=== PATIENT | male | born 1950 | race Caucasian/White ===

== ENCOUNTER → 2018-03-24 12:13 | Outpatient (CLI) | payer MEDICARE, SELFPAY ==
--- NOTE | 2018-03-24 12:15 | DI.RAD.S_ITS ---
PROCEDURE: XR HIP W PEL IF DONE LT MIN 4V INDICATIONS: pain with ambulation TECHNIQUE: AP pelvis with lateral view(s) of the bilateral hip(s). COMPARISON: None. FINDINGS: Bones: No fractures or dislocations. Pelvic ring appears intact. No suspicious bony lesions. There is mild bilateral hip joint space narrowing. Soft tissues: The visualized bowel gas pattern is normal. No suspicious soft tissue calcifications. IMPRESSION: Mild bilateral hip osteoarthritis. If there is continued pain, followup exam or additional imaging such as MRI or CT could be performed for further assessment. Dictated by: Kate Hope M.D. on 03/24/2018 at 13:11 Approved by: Kate Hope M.D. on 03/24/2018 at 13:12
== END ==
PROVIDERS: Visit Provider Physician Assistant
DX: M25.552 Pain in left hip (principal); M16.0 Bilateral primary osteoarthritis of hip
CPT/HCPCS: 73522

== ENCOUNTER → 2019-02-10 11:51 | Outpatient (CLI) | payer MEDICARE, SELFPAY ==
[2019-02-10 12:34] LABS: Hematocrit 43.5 % (41-53); Hemoglobin 14.9 g/dL (13.5-17.5); Mean Corpuscular HGB Conc 34.2 % (30-36); Mean Corpuscular Hemoglobin 30.2 PG (26-34); Mean Corpuscular Volume 88.3 fL (80-100); Platelet Count 169 X10^3/uL (150-400); Red Blood Cell Count 4.93 X10^6/uL (4.5-5.9); Red Cell Distribution Width 14.2 % (11.6-14.8); White Blood Cell Count 5.3 X10^3/uL (4.5-11.0)
[2019-02-10 12:54] LABS: Hemoglobin A1C% w Est Avg Glu 5.8 % (4.0-6.0)
[2019-02-10 13:03] LABS: Alanine Aminotransferase 42 IU/L (21-72); Albumin 4.5 g/dL (3.5-5.0); Alkaline Phosphatase 39 U/L (38-126); Aspartate Aminotransferase 30 IU/L (17-59); Bilirubin Total 0.6 mg/dL (0.2-1.3); Blood Urea Nitrogen 18 mg/dL (9-20); Carbon Dioxide 26 mmol/L (22-32); Chloride 102 mmol/L (98-107); Cholesterol 202 mg/dL (140-199); Estimated Glomerular Filt Rate > 60.0 mL/min (>60); Globulin 2.3 g/dL (1.7-4.1); Glucose 118 mg/dL (80-110); HDL Cholesterol 41 mg/dL (40-60); HEMOLYSIS < 15 (0-50); LDL Cholesterol Calculated 137 mg/dL (<100); Potassium 4.6 mmol/L (3.4-5.1); Sodium 138 mmol/L (137-145); Total Protein 6.8 g/dL (6.3-8.2); Triglycerides 121 mg/dL (35-150)
[2019-02-10 13:31] LABS: TSH w/ Reflex to FT4 1.67 uIU/mL (0.47-4.68)
[2019-02-10 13:50] LABS: Vitamin B12 514 pg/mL (239-931)
[2019-02-15 11:53] LABS: Testosterone Free 57.6 pg/mL (35.0-155.0); Testosterone Total 340 ng/dL (250-1100)
== END ==
PROVIDERS: PCP Nurse Practitioner Family; Visit Provider Nurse Practitioner Family
DX: E11.69 Type 2 diabetes mellitus with other specified complication (principal); E66.9 Obesity, unspecified; R53.83 Other fatigue; E78.2 Mixed hyperlipidemia
CPT/HCPCS: 36415; 80053; 80061; 82607; 83036; 84402; 84403; 84443; 85027

== ENCOUNTER → 2020-01-24 12:36 | Outpatient (CLI) | payer MEDICARE, SELFPAY ==
[2020-01-24 14:38] LABS: Hemoglobin 14.5 g/dL (13.5-17.5); Mean Corpuscular HGB Conc 33.8 % (30-36); Mean Corpuscular Hemoglobin 30.2 PG (26-34); Mean Corpuscular Volume 89.5 fL (80-100); Platelet Count 163 X10^3/uL (150-400); Red Blood Cell Count 4.81 X10^6/uL (4.5-5.9); Red Cell Distribution Width 14.2 % (11.6-14.8); White Blood Cell Count 6.2 X10^3/uL (4.5-11.0)
[2020-01-24 14:56] LABS: Alanine Aminotransferase 29 IU/L (<50); Albumin 4.3 g/dL (3.5-5.0); Albumin Globulin Ratio 1.5 (1.0-2.8); Alkaline Phosphatase 37 U/L (38-126); Aspartate Aminotransferase 24 IU/L (17-59); Bilirubin Total 0.5 mg/dL (0.2-1.3); Blood Urea Nitrogen 18 mg/dL (9-20); Calcium 9.4 mg/dL (8.4-10.2); Carbon Dioxide 31 mmol/L (22-32); Chloride 105 mmol/L (98-107); Cholesterol 188 mg/dL (140-199); Estimated Glomerular Filt Rate > 60.0 mL/min (>60); Globulin 2.8 g/dL (1.7-4.1); Glucose 109 mg/dL (80-110); HDL Cholesterol 35 mg/dL (40-60); HEMOLYSIS < 15 (0-50); LDL Cholesterol Calculated 135 mg/dL (<100); Potassium 4.5 mmol/L (3.4-5.1); Sodium 139 mmol/L (137-145); Total Protein 7.1 g/dL (6.3-8.2); Triglycerides 91 mg/dL (35-150)
[2020-01-24 14:58] LABS: Hemoglobin A1C% w Est Avg Glu 5.6 % (4.0-6.0)
== END ==
PROVIDERS: PCP Nurse Practitioner Family; Referring Provider Nurse Practitioner Family; Visit Provider Nurse Practitioner Family
DX: Z00.00 Encounter for general adult medical examination without abnormal findings (principal); E11.69 Type 2 diabetes mellitus with other specified complication; E66.9 Obesity, unspecified; E78.2 Mixed hyperlipidemia
CPT/HCPCS: 36415; 80053; 80061; 83036; 85027

== ENCOUNTER → 2020-07-19 11:54 | Outpatient (CLI) | payer MEDICARE, SELFPAY ==
[2020-07-19] MEDS: COVID-19 VACC, Ad26(JANSSEN)/PF 0.5 ML IM (12:01)
== END ==
PROVIDERS: PCP Nurse Practitioner Family; Visit Provider Internal Medicine
DX: Z23 Encounter for immunization (principal)
CPT/HCPCS: 0031A; 91303

== ENCOUNTER → 2021-06-13 09:04 | Outpatient (CLI) | payer MEDICARE, SELFPAY ==
[2021-06-13 09:59] LABS: Hematocrit 43.3 % (41-53); Hemoglobin 14.8 g/dL (13.5-17.5); Mean Corpuscular HGB Conc 34.2 % (30-36); Mean Corpuscular Hemoglobin 29.9 PG (26-34); Mean Corpuscular Volume 87.4 fL (80-100); Platelet Count 172 X10^3/uL (150-400); Red Blood Cell Count 4.95 X10^6/uL (4.5-5.9); Red Cell Distribution Width 14.6 % (11.6-14.8); White Blood Cell Count 6.1 X10^3/uL (4.5-11.0)
[2021-06-13 10:12] LABS: Hemoglobin A1C% w Est Avg Glu 5.7 % (4.0-6.0)
[2021-06-13 10:30] LABS: Alanine Aminotransferase 28 IU/L (<50); Albumin 4.7 g/dL (3.5-5.0); Albumin Globulin Ratio 1.7 (1.0-2.8); Alkaline Phosphatase 38 U/L (38-126); Aspartate Aminotransferase 21 IU/L (17-59); BUN Creatinine Ratio 22.1 (6-22); Bilirubin Total 0.6 mg/dL (0.2-1.3); Blood Urea Nitrogen 19 mg/dL (9-20); Calcium 9.5 mg/dL (8.4-10.2); Carbon Dioxide 26 mmol/L (22-32); Chloride 105 mmol/L (98-107); Cholesterol 224 mg/dL (140-199); Estimated Glomerular Filt Rate > 60.0 mL/min (>60); Globulin 2.7 g/dL (1.7-4.1); Glucose 128 mg/dL (80-110); HDL Cholesterol 43 mg/dL (40-60); HEMOLYSIS < 15 (0-50); LDL Cholesterol Calculated 161 mg/dL (<100); Potassium 4.5 mmol/L (3.4-5.1); Sodium 138 mmol/L (137-145); Total Protein 7.4 g/dL (6.3-8.2); Triglycerides 101 mg/dL (35-150)
== END ==
PROVIDERS: PCP Nurse Practitioner Family; Referring Provider Nurse Practitioner Family; Visit Provider Nurse Practitioner Family
DX: E11.69 Type 2 diabetes mellitus with other specified complication (principal); E66.9 Obesity, unspecified; E78.2 Mixed hyperlipidemia; Z00.00 Encounter for general adult medical examination without abnormal findings
CPT/HCPCS: 36415; 80053; 80061; 83036; 85027

== ENCOUNTER 2021-08-20 11:15 | Outpatient (RCR) | payer MEDICARE, SELFPAY ==
--- NOTE | 2021-07-18 16:00 | PT.OIE ---
Current Diagnoses Pain in left shoulder (07/18/21) Past Medical History (Last Updated 06/13/21 @ 09:02 by GUY Dinero) Cyst (04/2019) Diabetes mellitus type 2 in obese (2014) Elevated blood pressure reading without diagnosis of hypertension (06/2021) History of tonsillectomy and adenoidectomy (~1954) Mixed hyperlipidemia (2014) Past Surgical History (Last Updated 03/27/19 @ 20:05 by Sally Baires) Anesthesia History of tonsillectomy and adenoidectomy (~1954) Visit Care Team Role Provider Type GUY Dinero Attending Provider Advanced Nurse Orthopedic Family Provider Primary Care Provider Referring Provider Specialty: Family Practice Address: [address] [place] [address], [facility] Email: [email or web address] Physical Therapy Initial Evaluation PT-OP-A Visit Information Start: 07/09/21 12:35 Freq: Status: Active Protocol: Document 07/18/21 13:45 AMB (Rec: 07/18/21 15:53 AMB [id number]) Out-Patient Physical Therapy Visit Information Visit Information Visit Type Initial Evaluation Visit Start Time 13:45 Visit Stop Time 14:30 Total Visit Minutes 45 Visit Number 1 PT-OP-B Current Condition Start: 07/09/21 12:35 Freq: Status: Active Protocol: Document 07/18/21 13:50 AMB (Rec: 07/18/21 13:57 AMB [id number]) Current Condition History of Current Condition Onset Date June 2020 Current Complaints L shoulder pain History of Current Condition Fell skiing, and hurt right knee and left shoulder. Left shoulder pain, reaching behind back is the worst, sleepin on the left shoulder is challenging. Has noticed decreased ROM, clicking with overhead movement. Denies numbness/tingling, does notice some tension in the neck. Prior Functional Status Baseline Function- ADL's Independent Baseline Function- Mobility Independent Current Functional Impairments (Reported) Functional Limitations- ADL's Has reduced weightlifting due to the pain. Pain with reaching behind back to move belt through belt loops, difficulty sleeping on the left shoulder. Personal Factors Other Personal Factors That May Effect DMII- intermittent fasting Therapy/Recovery PT-OP-C Subjective Start: 07/09/21 12:35 Freq: Status: Active Protocol: Document 07/18/21 13:45 AMB (Rec: 07/21/21 10:42 AMB [id number]) Patient Questionnaires Quick Dash- Upper Extremity Quick Dash UE Score 29 Quick Dash UE Impairment 20 to 39% Impaired (Score 20- 39) OP-PT Pain Assessment Comments Pain Comments -10/20 with movement- left poserior shoulder PT-OP-J Posture/Palpation/Skin Start: 07/09/21 12:35 Freq: Status: Active Protocol: Document 07/19/21 13:45 AMB (Rec: 07/21/21 10:45 AMB [id number]) Posture Evaluation Comments Posture Comments Moderate forward shoulder posture Palpation Assessment Location One Palpation Location Left shoulder Palpation Findings Muscle Guarding,Tenderness Palpation Details Tenderness at posterior GH joint, no tenderness noted through scapula, tension at levator scap/ UT PT-OP-K Range of Motion Start: 07/09/21 12:35 Freq: Status: Active Protocol: Document 07/18/21 13:57 AMB (Rec: 07/18/21 14:24 AMB [id number]) Shoulder Goniometric Range of Motion Shoulder Left Passive Testing Position Supine Flexion 150 Abduction 133 External Rotation at 45 degrees 40 Abduction PT-OP-L Special Tests Start: 07/09/21 12:35 Freq: Status: Active Protocol: Document 07/18/21 13:45 AMB (Rec: 07/21/21 10:42 AMB [id number]) Special Tests Shoulder Special Tests Neer Impingement Test Results + PT-OP-M Strength Start: 07/09/21 12:35 Freq: Status: Active Protocol: Document 07/18/21 13:45 AMB (Rec: 07/21/21 10:42 AMB [id number]) Shoulder Strength Shoulder Manual Muscle Testing Left Flexion 4 Good Extension 4+ Good+ Abduction (C5) 4 Good External Rotation 4 Good Internal Rotation 4+ Good+ PT-OP-Q Treatments Start: 07/09/21 12:35 Freq: Status: Active Protocol: Document 07/18/21 13:45 AMB (Rec: 07/21/21 10:42 AMB [id number]) Therapeutic Exercises Sitting Exercises tband ER Side bilateral Resistance #3 Reps/Minutes 2x10 Comments cues for form PT-OP-T Assessment and Plan Start: 07/09/21 12:35 Freq: Status: Active Protocol: Document 07/18/21 13:45 AMB (Rec: 07/21/21 10:42 AMB [id number]) Physical Therapy Assessment Rehab Potential Rehabilitation Potential Good Evaluation Complexity Number of Personal Factors/Comorbidities 1-2 Number of Body Systems Impaired 4 or More Clinical Presentation at Evaluation Stable Impairments Impairments Activity Tolerance,Functional Activities,Pain,Posture,ROM, Strength Goals Two Impairment Pain Short Term Goal (STG) Ed will reach behind his back to don/doff his belt with 2/10 pain or less. STG Duration 4 weeks Care Home Goal (LTG) Ed will sleep on his left shoulder without waking due to pain. LTG Duration 8 weeks One Impairment Range of motion Short Term Goal (STG) Ed will improve his passive shoulder flexion to 160 degrees. STG Duration 4 weeks Tank Builder And Erector Goal (LTG) Ed will improve his active shoulder abduction to at least 150 degrees. LTG Duration 8 weeks Assessment Summary Assessment Ed attends physical therapy over 1 year after left shoulder injury that continues to limit his ability to rotate his shoulder and reach behind his back and over his shoulder. He did show signs of impingement and weakness into external rotation. He will benefit from physical therapy to improve his strength, ROM, and decrease pain/swelling so that he can have full range of motion and strength again. Physical Therapy Plan Frequency and Duration Frequency of Treatment 2x/Week Duration of Treatment 8 weeks Plan of Care Start Date 07/18/21 Plan of Care End Date 09/12/21 Therapeutic Interventions Therapeutic Interventions Home Exercise Program,Joint Mobilizations,Manual Therapy, Neuromuscular Re-education, Self-Care/Home Management,Soft Tissue Mobilization, Therapeutic Activities, Therapeutic Exercises Modalities Cold Pack/Ice Massage,Electric Stimulation,Hot Packs Next Visit Focus/Plan Next Note Type Treatment Note Next Visit Plan Review GH ER strengthening for HEP, progress ROM as tolerated
--- NOTE | 2021-07-18 16:00 | PT.OPPOC ---
Physical, Occupational & Speech Therapy At [facility] Current Diagnoses Pain in left shoulder (07/18/21) Visit Care Team Role Provider Type GUY Dinero Attending Provider Advanced Lubrication Servicer Family Provider Primary Care Provider Referring Provider Specialty: Family Practice Address: [address] [place] [address], [id number] Email: [email or web address] Plan Of Care PT-OP-T Assessment and Plan Start: 07/09/21 12:35 Freq: Status: Active Protocol: Document 07/18/21 13:45 AMB (Rec: 07/21/21 10:42 AMB [id number]) Physical Therapy Assessment Rehab Potential Rehabilitation Potential Good Evaluation Complexity Number of Personal Factors/Comorbidities 1-2 Number of Body Systems Impaired 4 or More Clinical Presentation at Evaluation Stable Impairments Impairments Activity Tolerance,Functional Activities,Pain,Posture,ROM, Strength Goals Two Impairment Pain Short Term Goal (STG) Ed will reach behind his back to don/doff his belt with 2/10 pain or less. STG Duration 4 weeks Half-Way Goal (LTG) Ed will sleep on his left shoulder without waking due to pain. LTG Duration 8 weeks One Impairment Range of motion Short Term Goal (STG) Ed will improve his passive shoulder flexion to 160 degrees. STG Duration 4 weeks Supervisor Dog License Officer Goal (LTG) Ed will improve his active shoulder abduction to at least 150 degrees. LTG Duration 8 weeks Assessment Summary Assessment Ed attends physical therapy over 1 year after left shoulder injury that continues to limit his ability to rotate his shoulder and reach behind his back and over his shoulder. He did show signs of impingement and weakness into external rotation. He will benefit from physical therapy to improve his strength, ROM, and decrease pain/swelling so that he can have full range of motion and strength again. Physical Therapy Plan Frequency and Duration Frequency of Treatment 2x/Week Duration of Treatment 8 weeks Plan of Care Start Date 07/18/21 Plan of Care End Date 09/12/21 Therapeutic Interventions Therapeutic Interventions Home Exercise Program,Joint Mobilizations,Manual Therapy, Neuromuscular Re-education, Self-Care/Home Management,Soft Tissue Mobilization, Therapeutic Activities, Therapeutic Exercises Modalities Cold Pack/Ice Massage,Electric Stimulation,Hot Packs Next Visit Focus/Plan Next Note Type Treatment Note Next Visit Plan Review GH ER strengthening for HEP, progress ROM as tolerated Plan of Care Dates Plan of Care Start Date 07/18/21 Plan of Care End Date 09/12/21 Electronically Signed by: Licha Smith, PT 07/21/21 1046 Please Sign and Return: I have reviewed this Plan of Care and certify that the skilled therapy services above are required to meet the patient?s needs. Physician Signature Date Printed Name and Credentials Clinical Instructor Signature Printed Name and Credentials
--- NOTE | 2021-07-19 16:00 | PT.OIE ---
Current Diagnoses Pain in left shoulder (07/18/21) Past Medical History (Last Updated 06/13/21 @ 09:02 by GUY Dinero) Cyst (04/2019) Diabetes mellitus type 2 in obese (2014) Elevated blood pressure reading without diagnosis of hypertension (06/2021) History of tonsillectomy and adenoidectomy (~1954) Mixed hyperlipidemia (2014) Past Surgical History (Last Updated 03/27/19 @ 20:05 by Sally Baires) Anesthesia History of tonsillectomy and adenoidectomy (~1954) Visit Care Team Role Provider Type GUY Dinero Attending Provider Advanced Industrial Locomotive Operator Family Provider Primary Care Provider Referring Provider Specialty: Family Practice Address: [address] [place] [address], [facility] Email: [email or web address] Physical Therapy Initial Evaluation PT-OP-A Visit Information Start: 07/09/21 12:35 Freq: Status: Active Protocol: Document 07/18/21 13:45 AMB (Rec: 07/18/21 15:53 AMB [id number]) Out-Patient Physical Therapy Visit Information Visit Information Visit Type Initial Evaluation Visit Start Time 13:45 Visit Stop Time 14:30 Total Visit Minutes 45 Visit Number 1 PT-OP-B Current Condition Start: 07/09/21 12:35 Freq: Status: Active Protocol: Document 07/18/21 13:50 AMB (Rec: 07/18/21 13:57 AMB [id number]) Current Condition History of Current Condition Onset Date June 2020 Current Complaints L shoulder pain History of Current Condition Fell skiing, and hurt right knee and left shoulder. Left shoulder pain, reaching behind back is the worst, sleepin on the left shoulder is challenging. Has noticed decreased ROM, clicking with overhead movement. Denies numbness/tingling, does notice some tension in the neck. Prior Functional Status Baseline Function- ADL's Independent Baseline Function- Mobility Independent Current Functional Impairments (Reported) Functional Limitations- ADL's Has reduced weightlifting due to the pain. Pain with reaching behind back to move belt through belt loops, difficulty sleeping on the left shoulder. Personal Factors Other Personal Factors That May Effect DMII- intermittent fasting Therapy/Recovery PT-OP-C Subjective Start: 07/09/21 12:35 Freq: Status: Active Protocol: Document 07/18/21 13:45 AMB (Rec: 07/21/21 10:42 AMB [id number]) Patient Questionnaires Quick Dash- Upper Extremity Quick Dash UE Score 29 Quick Dash UE Impairment 20 to 39% Impaired (Score 20- 39) OP-PT Pain Assessment Comments Pain Comments -10/20 with movement- left poserior shoulder PT-OP-J Posture/Palpation/Skin Start: 07/09/21 12:35 Freq: Status: Active Protocol: Document 07/19/21 13:45 AMB (Rec: 07/21/21 10:45 AMB [id number]) Posture Evaluation Comments Posture Comments Moderate forward shoulder posture Palpation Assessment Location One Palpation Location Left shoulder Palpation Findings Muscle Guarding,Tenderness Palpation Details Tenderness at posterior GH joint, no tenderness noted through scapula, tension at levator scap/ UT PT-OP-K Range of Motion Start: 07/09/21 12:35 Freq: Status: Active Protocol: Document 07/18/21 13:57 AMB (Rec: 07/18/21 14:24 AMB [id number]) Shoulder Goniometric Range of Motion Shoulder Left Passive Testing Position Supine Flexion 150 Abduction 133 External Rotation at 45 degrees 40 Abduction PT-OP-L Special Tests Start: 07/09/21 12:35 Freq: Status: Active Protocol: Document 07/18/21 13:45 AMB (Rec: 07/21/21 10:42 AMB [id number]) Special Tests Shoulder Special Tests Neer Impingement Test Results + PT-OP-M Strength Start: 07/09/21 12:35 Freq: Status: Active Protocol: Document 07/18/21 13:45 AMB (Rec: 07/21/21 10:42 AMB [id number]) Shoulder Strength Shoulder Manual Muscle Testing Left Flexion 4 Good Extension 4+ Good+ Abduction (C5) 4 Good External Rotation 4 Good Internal Rotation 4+ Good+ PT-OP-Q Treatments Start: 07/09/21 12:35 Freq: Status: Active Protocol: Document 07/18/21 13:45 AMB (Rec: 07/21/21 10:42 AMB [id number]) Therapeutic Exercises Sitting Exercises tband ER Side bilateral Resistance #3 Reps/Minutes 2x10 Comments cues for form PT-OP-T Assessment and Plan Start: 07/09/21 12:35 Freq: Status: Active Protocol: Document 07/18/21 13:45 AMB (Rec: 07/21/21 10:42 AMB [id number]) Physical Therapy Assessment Rehab Potential Rehabilitation Potential Good Evaluation Complexity Number of Personal Factors/Comorbidities 1-2 Number of Body Systems Impaired 4 or More Clinical Presentation at Evaluation Stable Impairments Impairments Activity Tolerance,Functional Activities,Pain,Posture,ROM, Strength Goals Two Impairment Pain Short Term Goal (STG) Ed will reach behind his back to don/doff his belt with 2/10 pain or less. STG Duration 4 weeks Correction Goal (LTG) Ed will sleep on his left shoulder without waking due to pain. LTG Duration 8 weeks One Impairment Range of motion Short Term Goal (STG) Ed will improve his passive shoulder flexion to 160 degrees. STG Duration 4 weeks Saw Superintendent Goal (LTG) Ed will improve his active shoulder abduction to at least 150 degrees. LTG Duration 8 weeks Assessment Summary Assessment Ed attends physical therapy over 1 year after left shoulder injury that continues to limit his ability to rotate his shoulder and reach behind his back and over his shoulder. He did show signs of impingement and weakness into external rotation. He will benefit from physical therapy to improve his strength, ROM, and decrease pain/swelling so that he can have full range of motion and strength again. Physical Therapy Plan Frequency and Duration Frequency of Treatment 2x/Week Duration of Treatment 8 weeks Plan of Care Start Date 07/18/21 Plan of Care End Date 09/12/21 Therapeutic Interventions Therapeutic Interventions Home Exercise Program,Joint Mobilizations,Manual Therapy, Neuromuscular Re-education, Self-Care/Home Management,Soft Tissue Mobilization, Therapeutic Activities, Therapeutic Exercises Modalities Cold Pack/Ice Massage,Electric Stimulation,Hot Packs Next Visit Focus/Plan Next Note Type Treatment Note Next Visit Plan Review GH ER strengthening for HEP, progress ROM as tolerated
--- NOTE | 2021-07-22 16:12 | PT.OTN ---
Current Diagnoses Pain in left shoulder (07/22/21) Physical Therapy Treatment Note PT-OP-A Visit Information Start: 07/09/21 12:35 Freq: Status: Active Protocol: Document 07/22/21 13:54 AMB (Rec: 07/22/21 14:22 AMB [id number]) Out-Patient Physical Therapy Visit Information Visit Information Visit Type Treatment Note Visit Start Time 13:45 Visit Stop Time 14:30 Total Visit Minutes 45 Visit Number 2 PT-OP-B Current Condition Start: 07/09/21 12:35 Freq: Status: Active Protocol: Document 07/18/21 13:50 AMB (Rec: 07/18/21 13:57 AMB [id number]) Current Condition History of Current Condition Onset Date June 2020 Current Complaints L shoulder pain History of Current Condition Fell skiing, and hurt right knee and left shoulder. Left shoulder pain, reaching behind back is the worst, sleepin on the left shoulder is challenging. Has noticed decreased ROM, clicking with overhead movement. Denies numbness/tingling, does notice some tension in the neck. Prior Functional Status Baseline Function- ADL's Independent Baseline Function- Mobility Independent Current Functional Impairments (Reported) Functional Limitations- ADL's Has reduced weightlifting due to the pain. Pain with reaching behind back to move belt through belt loops, difficulty sleeping on the left shoulder. Personal Factors Other Personal Factors That May Effect DMII- intermittent fasting Therapy/Recovery PT-OP-C Subjective Start: 07/09/21 12:35 Freq: Status: Active Protocol: Document 07/22/21 13:54 AMB (Rec: 07/22/21 14:22 AMB [id number]) OP-PT Subjective Patient Comments Patient Comments Pt reports pain at end range, soreness but range of motion is increasing. PT-OP-J Posture/Palpation/Skin Start: 07/09/21 12:35 Freq: Status: Active Protocol: Document 07/19/21 13:45 AMB (Rec: 07/21/21 10:45 AMB [id number]) Posture Evaluation Comments Posture Comments Moderate forward shoulder posture Palpation Assessment Location One Palpation Location Left shoulder Palpation Findings Muscle Guarding,Tenderness Palpation Details Tenderness at posterior GH joint, no tenderness noted through scapula, tension at levator scap/ UT PT-OP-K Range of Motion Start: 07/09/21 12:35 Freq: Status: Active Protocol: Document 07/18/21 13:57 AMB (Rec: 07/18/21 14:24 AMB [id number]) Shoulder Goniometric Range of Motion Shoulder Left Passive Testing Position Supine Flexion 150 Abduction 133 External Rotation at 45 degrees 40 Abduction PT-OP-L Special Tests Start: 07/09/21 12:35 Freq: Status: Active Protocol: Document 07/18/21 13:45 AMB (Rec: 07/21/21 10:42 AMB [id number]) Special Tests Shoulder Special Tests Neer Impingement Test Results + PT-OP-M Strength Start: 07/09/21 12:35 Freq: Status: Active Protocol: Document 07/18/21 13:45 AMB (Rec: 07/21/21 10:42 AMB [id number]) Shoulder Strength Shoulder Manual Muscle Testing Left Flexion 4 Good Extension 4+ Good+ Abduction (C5) 4 Good External Rotation 4 Good Internal Rotation 4+ Good+ PT-OP-Q Treatments Start: 07/09/21 12:35 Freq: Status: Active Protocol: Document 07/22/21 13:45 AMB (Rec: 07/22/21 14:22 AMB [id number]) Therapeutic Exercises Sitting Exercises tband ER Side bilateral Resistance #3 Reps/Minutes 2x10 Comments cues for form Standing Exercises extension Standing Exercise Name t band Side bilateral Reps/Minutes 2x10 rows Standing Exercise Name t band Side bilateral Resistance #2 Reps/Minutes 2x10 claude Reps/Minutes 2x10 Comments scaption and flexion Manual Therapy Treatment Joint Mobilizations 1 Joint GH Direction AP and inferior glide Grade III Body Position Hooklying PT-OP-T Assessment and Plan Start: 07/09/21 12:35 Freq: Status: Active Protocol: Document 07/22/21 13:45 AMB (Rec: 07/22/21 16:12 AMB [id number]) Physical Therapy Assessment Goals Two Impairment Pain Short Term Goal (STG) Ed will reach behind his back to don/doff his belt with 2/10 pain or less. STG Duration 4 weeks Custodial Goal (LTG) Ed will sleep on his left shoulder without waking due to pain. LTG Duration 8 weeks One Impairment Range of motion Short Term Goal (STG) Ed will improve his passive shoulder flexion to 160 degrees. STG Duration 4 weeks Custodial Goal (LTG) Ed will improve his active shoulder abduction to at least 150 degrees. LTG Duration 8 weeks Assessment Summary Assessment Pt tolerated strengthening well, but fatigues with ER quickly. abduction most limited today. Physical Therapy Plan Next Visit Focus/Plan Next Note Type Treatment Note Next Visit Plan Review GH ER strengthening for HEP, progress ROM as tolerated
--- NOTE | 2021-07-25 12:55 | PT.OTN ---
Current Diagnoses Pain in left shoulder (07/25/21) Physical Therapy Treatment Note PT-OP-A Visit Information Start: 07/09/21 12:35 Freq: Status: Active Protocol: Document 07/25/21 10:14 AMB (Rec: 07/25/21 11:24 AMB [id number]) Out-Patient Physical Therapy Visit Information Visit Information Visit Type Treatment Note Visit Start Time 10:15 Visit Stop Time 11:00 Total Visit Minutes 45 Visit Number 3 PT-OP-B Current Condition Start: 07/09/21 12:35 Freq: Status: Active Protocol: Document 07/18/21 13:50 AMB (Rec: 07/18/21 13:57 AMB [id number]) Current Condition History of Current Condition Onset Date June 2020 Current Complaints L shoulder pain History of Current Condition Fell skiing, and hurt right knee and left shoulder. Left shoulder pain, reaching behind back is the worst, sleepin on the left shoulder is challenging. Has noticed decreased ROM, clicking with overhead movement. Denies numbness/tingling, does notice some tension in the neck. Prior Functional Status Baseline Function- ADL's Independent Baseline Function- Mobility Independent Current Functional Impairments (Reported) Functional Limitations- ADL's Has reduced weightlifting due to the pain. Pain with reaching behind back to move belt through belt loops, difficulty sleeping on the left shoulder. Personal Factors Other Personal Factors That May Effect DMII- intermittent fasting Therapy/Recovery PT-OP-C Subjective Start: 07/09/21 12:35 Freq: Status: Active Protocol: Document 07/25/21 10:14 AMB (Rec: 07/25/21 11:24 AMB [id number]) OP-PT Subjective Patient Comments Patient Comments Pt reports his shoulder is a bit sore with the external rotation strengthening. PT-OP-J Posture/Palpation/Skin Start: 07/09/21 12:35 Freq: Status: Active Protocol: Document 07/19/21 13:45 AMB (Rec: 07/21/21 10:45 AMB [id number]) Posture Evaluation Comments Posture Comments Moderate forward shoulder posture Palpation Assessment Location One Palpation Location Left shoulder Palpation Findings Muscle Guarding,Tenderness Palpation Details Tenderness at posterior GH joint, no tenderness noted through scapula, tension at levator scap/ UT PT-OP-K Range of Motion Start: 07/09/21 12:35 Freq: Status: Active Protocol: Document 07/18/21 13:57 AMB (Rec: 07/18/21 14:24 AMB [id number]) Shoulder Goniometric Range of Motion Shoulder Left Passive Testing Position Supine Flexion 150 Abduction 133 External Rotation at 45 degrees 40 Abduction PT-OP-L Special Tests Start: 07/09/21 12:35 Freq: Status: Active Protocol: Document 07/18/21 13:45 AMB (Rec: 07/21/21 10:42 AMB [id number]) Special Tests Shoulder Special Tests Neer Impingement Test Results + PT-OP-M Strength Start: 07/09/21 12:35 Freq: Status: Active Protocol: Document 07/18/21 13:45 AMB (Rec: 07/21/21 10:42 AMB [id number]) Shoulder Strength Shoulder Manual Muscle Testing Left Flexion 4 Good Extension 4+ Good+ Abduction (C5) 4 Good External Rotation 4 Good Internal Rotation 4+ Good+ PT-OP-Q Treatments Start: 07/09/21 12:35 Freq: Status: Active Protocol: Document 07/25/21 10:14 AMB (Rec: 07/25/21 11:24 AMB [id number]) Therapeutic Exercises Sitting Exercises claude Reps/Minutes 5 min Comments flexion and scaption Standing Exercises pnf diagonal Resistance #1 Reps/Minutes 2x10 abduction Resistance #1 Reps/Minutes 2x10 Comments 0-60 flexion Resistance #1 Reps/Minutes 2x10 Comments 0-45 extension Standing Exercise Name t band Side bilateral Reps/Minutes 2x10 rows Standing Exercise Name t band Side bilateral Resistance #2 Reps/Minutes 2x10 Manual Therapy Treatment Soft Tissue Mobilization 1 Body Location L scapula Mobilization Type Myofascial Release Intensity/Depth Moderate Body Position Hooklying Joint Mobilizations 1 Joint GH Direction AP and inferior glide Grade III Body Position Hooklying PT-OP-T Assessment and Plan Start: 07/09/21 12:35 Freq: Status: Active Protocol: Document 07/25/21 10:14 AMB (Rec: 07/25/21 11:24 AMB [id number]) Physical Therapy Assessment Goals Two Impairment Pain Short Term Goal (STG) Ed will reach behind his back to don/doff his belt with 2/10 pain or less. STG Duration 4 weeks Custodial Goal (LTG) Ed will sleep on his left shoulder without waking due to pain. LTG Duration 8 weeks One Impairment Range of motion Short Term Goal (STG) Ed will improve his passive shoulder flexion to 160 degrees. STG Duration 4 weeks Custodial Goal (LTG) Ed will improve his active shoulder abduction to at least 150 degrees. LTG Duration 8 weeks Assessment Summary Assessment Pt is doing well. He is tolerated theraband exercises well. Gave PNF diagonals as HEP today. Encouraged to strengthen within comfortable range. Physical Therapy Plan Frequency and Duration Frequency of Treatment 2x/Week Duration of Treatment 8 weeks Plan of Care Start Date 07/18/21 Plan of Care End Date 09/12/21 Next Visit Focus/Plan Next Note Type Treatment Note Next Visit Plan Review GH ER strengthening for HEP, progress ROM as tolerated. continue to progress t band exercises- could consider increasing resistance of t band if doing well.
--- NOTE | 2021-07-29 12:49 | PT.OTN ---
Current Diagnoses Pain in left shoulder (07/29/21) Physical Therapy Treatment Note PT-OP-A Visit Information Start: 07/09/21 12:35 Freq: Status: Active Protocol: Document 07/29/21 11:55 MA (Rec: 07/29/21 12:49 MA [id number]) Out-Patient Physical Therapy Visit Information Visit Information Visit Type Treatment Note Visit Start Time 11:55 Visit Stop Time 12:40 Total Visit Minutes 45 Visit Number 4 Number of BAND INSTRUMENT MAKER Visits 1 PT-OP-B Current Condition Start: 07/09/21 12:35 Freq: Status: Active Protocol: Document 07/18/21 13:50 AMB (Rec: 07/18/21 13:57 AMB [id number]) Current Condition History of Current Condition Onset Date June 2020 Current Complaints L shoulder pain History of Current Condition Fell skiing, and hurt right knee and left shoulder. Left shoulder pain, reaching behind back is the worst, sleepin on the left shoulder is challenging. Has noticed decreased ROM, clicking with overhead movement. Denies numbness/tingling, does notice some tension in the neck. Prior Functional Status Baseline Function- ADL's Independent Baseline Function- Mobility Independent Current Functional Impairments (Reported) Functional Limitations- ADL's Has reduced weightlifting due to the pain. Pain with reaching behind back to move belt through belt loops, difficulty sleeping on the left shoulder. Personal Factors Other Personal Factors That May Effect DMII- intermittent fasting Therapy/Recovery PT-OP-C Subjective Start: 07/09/21 12:35 Freq: Status: Active Protocol: Document 07/29/21 11:55 MA (Rec: 07/29/21 12:49 MA [id number]) OP-PT Subjective Patient Comments Patient Comments Pt feels he can do a lot more now without getting any pain. He has more soreness than pain in the shd now. PT-OP-J Posture/Palpation/Skin Start: 07/09/21 12:35 Freq: Status: Active Protocol: Document 07/19/21 13:45 AMB (Rec: 07/21/21 10:45 AMB [id number]) Posture Evaluation Comments Posture Comments Moderate forward shoulder posture Palpation Assessment Location One Palpation Location Left shoulder Palpation Findings Muscle Guarding,Tenderness Palpation Details Tenderness at posterior GH joint, no tenderness noted through scapula, tension at levator scap/ UT PT-OP-K Range of Motion Start: 07/09/21 12:35 Freq: Status: Active Protocol: Document 07/18/21 13:57 AMB (Rec: 07/18/21 14:24 AMB [id number]) Shoulder Goniometric Range of Motion Shoulder Left Passive Testing Position Supine Flexion 150 Abduction 133 External Rotation at 45 degrees 40 Abduction PT-OP-L Special Tests Start: 07/09/21 12:35 Freq: Status: Active Protocol: Document 07/18/21 13:45 AMB (Rec: 07/21/21 10:42 AMB [id number]) Special Tests Shoulder Special Tests Neer Impingement Test Results + PT-OP-M Strength Start: 07/09/21 12:35 Freq: Status: Active Protocol: Document 07/18/21 13:45 AMB (Rec: 07/21/21 10:42 AMB [id number]) Shoulder Strength Shoulder Manual Muscle Testing Left Flexion 4 Good Extension 4+ Good+ Abduction (C5) 4 Good External Rotation 4 Good Internal Rotation 4+ Good+ PT-OP-Q Treatments Start: 07/09/21 12:35 Freq: Status: Active Protocol: Document 07/29/21 11:55 MA (Rec: 07/29/21 12:49 MA [id number]) Therapeutic Exercises Sitting Exercises claude Reps/Minutes 5 min Comments flexion and scaption tband ER Side bilateral Resistance #2 Reps/Minutes 2x10 Comments in standing with towel roll as exernal cue to aovid shd abd Standing Exercises pnf diagonal Resistance #1, #2 Reps/Minutes 2x10 abduction Standing Exercise Name standing on band and abducting L shd Resistance #2 Reps/Minutes 2x10 Comments 0-90 flexion Standing Exercise Name standing on band and flexing shd Resistance #2 Reps/Minutes 2x10 Comments 0-45 extension Standing Exercise Name t band Side bilateral Resistance #2 Reps/Minutes 2x10 rows Standing Exercise Name t band Side bilateral Resistance #2 Reps/Minutes 2x10 Manual Therapy Treatment Soft Tissue Mobilization 1 Body Location L scapula Mobilization Type Myofascial Release Intensity/Depth Moderate Body Position Hooklying Joint Mobilizations 1 Joint GH Direction AP and inferior glide Grade III Body Position Sitting Comments 1. with belt, arm abd 90 degrees on table with active IR/ER 2. inferior oscillations by BAND INSTRUMENT MAKER with pt's arm abd to 90 degrees on table Self-Care/Home Management Treatment Education Patient Education Posture Other Education Pt standing laterally in mirror working on improving standing posture. Discussion of GH jt and pt's natrual position interferring with jt movement. PT-OP-T Assessment and Plan Start: 07/09/21 12:35 Freq: Status: Active Protocol: Document 07/29/21 11:55 MA (Rec: 07/29/21 12:49 MA [id number]) Physical Therapy Assessment Goals Two Impairment Pain Short Term Goal (STG) Ed will reach behind his back to don/doff his belt with 2/10 pain or less. STG Duration 4 weeks Assisted Goal (LTG) Ed will sleep on his left shoulder without waking due to pain. LTG Duration 8 weeks One Impairment Range of motion Short Term Goal (STG) Ed will improve his passive shoulder flexion to 160 degrees. STG Duration 4 weeks Tools Developer Goal (LTG) Ed will improve his active shoulder abduction to at least 150 degrees. LTG Duration 8 weeks Assessment Summary Assessment Pt has no pain with TB exercises and was able to progress resistance to lvl 2 TB. He continues to be limited into L IR & ER. Discussed pt' s standing posture and instructed pt to begin working on his posture outside of clinic. Physical Therapy Plan Frequency and Duration Frequency of Treatment 2x/Week Duration of Treatment 8 weeks Plan of Care Start Date 07/18/21 Plan of Care End Date 09/12/21 Therapeutic Interventions Therapeutic Interventions Home Exercise Program,Joint Mobilizations,Manual Therapy, Neuromuscular Re-education, Self-Care/Home Management,Soft Tissue Mobilization, Therapeutic Activities, Therapeutic Exercises Modalities Cold Pack/Ice Massage,Electric Stimulation,Hot Packs Next Visit Focus/Plan Next Note Type Treatment Note Next Visit Plan Review PNF diagonals for HEP, progress ROM as tolerated. continue to progress t band exercises and work on inferior glide
--- NOTE | 2021-08-01 12:35 | PT.OTN ---
Current Diagnoses Pain in left shoulder (08/01/21) Physical Therapy Treatment Note PT-OP-A Visit Information Start: 07/09/21 12:35 Freq: Status: Active Protocol: Document 08/01/21 10:36 AMB (Rec: 08/01/21 11:19 AMB [id number]) Out-Patient Physical Therapy Visit Information Visit Information Visit Type Treatment Note Visit Start Time 10:30 Visit Stop Time 11:15 Total Visit Minutes 45 Visit Number 5 PT-OP-B Current Condition Start: 07/09/21 12:35 Freq: Status: Active Protocol: Document 07/18/21 13:50 AMB (Rec: 07/18/21 13:57 AMB [id number]) Current Condition History of Current Condition Onset Date June 2020 Current Complaints L shoulder pain History of Current Condition Fell skiing, and hurt right knee and left shoulder. Left shoulder pain, reaching behind back is the worst, sleepin on the left shoulder is challenging. Has noticed decreased ROM, clicking with overhead movement. Denies numbness/tingling, does notice some tension in the neck. Prior Functional Status Baseline Function- ADL's Independent Baseline Function- Mobility Independent Current Functional Impairments (Reported) Functional Limitations- ADL's Has reduced weightlifting due to the pain. Pain with reaching behind back to move belt through belt loops, difficulty sleeping on the left shoulder. Personal Factors Other Personal Factors That May Effect DMII- intermittent fasting Therapy/Recovery PT-OP-C Subjective Start: 07/09/21 12:35 Freq: Status: Active Protocol: Document 08/01/21 10:30 AMB (Rec: 08/01/21 12:05 AMB [id number]) OP-PT Subjective Patient Comments Patient Comments Pt has noticed less soreness, still a little stiff, but has been noting improved IR to pull pants up. PT-OP-J Posture/Palpation/Skin Start: 07/09/21 12:35 Freq: Status: Active Protocol: Document 07/19/21 13:45 AMB (Rec: 07/21/21 10:45 AMB [id number]) Posture Evaluation Comments Posture Comments Moderate forward shoulder posture Palpation Assessment Location One Palpation Location Left shoulder Palpation Findings Muscle Guarding,Tenderness Palpation Details Tenderness at posterior GH joint, no tenderness noted through scapula, tension at levator scap/ UT PT-OP-K Range of Motion Start: 07/09/21 12:35 Freq: Status: Active Protocol: Document 07/18/21 13:57 AMB (Rec: 07/18/21 14:24 AMB [id number]) Shoulder Goniometric Range of Motion Shoulder Left Passive Testing Position Supine Flexion 150 Abduction 133 External Rotation at 45 degrees 40 Abduction PT-OP-L Special Tests Start: 07/09/21 12:35 Freq: Status: Active Protocol: Document 07/18/21 13:45 AMB (Rec: 07/21/21 10:42 AMB [id number]) Special Tests Shoulder Special Tests Neer Impingement Test Results + PT-OP-M Strength Start: 07/09/21 12:35 Freq: Status: Active Protocol: Document 07/18/21 13:45 AMB (Rec: 07/21/21 10:42 AMB [id number]) Shoulder Strength Shoulder Manual Muscle Testing Left Flexion 4 Good Extension 4+ Good+ Abduction (C5) 4 Good External Rotation 4 Good Internal Rotation 4+ Good+ PT-OP-Q Treatments Start: 07/09/21 12:35 Freq: Status: Active Protocol: Document 08/01/21 10:30 AMB (Rec: 08/01/21 12:05 AMB [id number]) Therapeutic Exercises Supine Exercises 1 Supine Exercise Name supine PNFs with 1# weight Reps/Minutes 10 Sitting Exercises claude Reps/Minutes 5 min Comments flexion and scaption and internal rotation Manual Therapy Treatment Soft Tissue Mobilization 1 Body Location L scapula Mobilization Type Myofascial Release Intensity/Depth Moderate Body Position Hooklying Joint Mobilizations 1 Joint GH Direction AP and inferior glide Grade III Body Position Sitting Comments 2. inferior oscillations by with pt's arm abd to 90 degrees on table PT-OP-T Assessment and Plan Start: 07/09/21 12:35 Freq: Status: Active Protocol: Document 08/01/21 10:36 AMB (Rec: 08/01/21 11:19 AMB [id number]) Physical Therapy Assessment Goals Two Impairment Pain Short Term Goal (STG) Ed will reach behind his back to don/doff his belt with 2/10 pain or less. STG Duration 4 weeks Longterm Goal (LTG) Ed will sleep on his left shoulder without waking due to pain. LTG Duration 8 weeks One Impairment Range of motion Short Term Goal (STG) Ed will improve his passive shoulder flexion to 160 degrees. STG Duration 4 weeks Longterm Goal (LTG) Ed will improve his active shoulder abduction to at least 150 degrees. LTG Duration 8 weeks Assessment Summary Assessment Ed is improving in his flexion PROM, abduction continues to be limited, but overall less pain, did discuss starting claude at home. Physical Therapy Plan Next Visit Focus/Plan Next Note Type Treatment Note Next Visit Plan Review PNF diagonals for HEP, progress ROM as tolerated. continue to progress t band exercises and work on inferior glide
--- NOTE | 2021-08-05 15:43 | PT.OTN ---
Current Diagnoses Pain in left shoulder (08/05/21) Physical Therapy Treatment Note PT-OP-A Visit Information Start: 07/09/21 12:35 Freq: Status: Active Protocol: Document 08/05/21 13:45 AMB (Rec: 08/05/21 14:27 AMB [id number]) Out-Patient Physical Therapy Visit Information Visit Information Visit Type Treatment Note Visit Start Time 13:45 Visit Stop Time 14:30 Total Visit Minutes 45 Visit Number 6 PT-OP-B Current Condition Start: 07/09/21 12:35 Freq: Status: Active Protocol: Document 07/18/21 13:50 AMB (Rec: 07/18/21 13:57 AMB [id number]) Current Condition History of Current Condition Onset Date June 2020 Current Complaints L shoulder pain History of Current Condition Fell skiing, and hurt right knee and left shoulder. Left shoulder pain, reaching behind back is the worst, sleepin on the left shoulder is challenging. Has noticed decreased ROM, clicking with overhead movement. Denies numbness/tingling, does notice some tension in the neck. Prior Functional Status Baseline Function- ADL's Independent Baseline Function- Mobility Independent Current Functional Impairments (Reported) Functional Limitations- ADL's Has reduced weightlifting due to the pain. Pain with reaching behind back to move belt through belt loops, difficulty sleeping on the left shoulder. Personal Factors Other Personal Factors That May Effect DMII- intermittent fasting Therapy/Recovery PT-OP-C Subjective Start: 07/09/21 12:35 Freq: Status: Active Protocol: Document 08/05/21 13:45 AMB (Rec: 08/05/21 14:27 AMB [id number]) OP-PT Subjective Patient Comments Patient Comments Feeling better ability to tuck shirt into pants. Has been sore with yardwork. PT-OP-J Posture/Palpation/Skin Start: 07/09/21 12:35 Freq: Status: Active Protocol: Document 07/19/21 13:45 AMB (Rec: 07/21/21 10:45 AMB [id number]) Posture Evaluation Comments Posture Comments Moderate forward shoulder posture Palpation Assessment Location One Palpation Location Left shoulder Palpation Findings Muscle Guarding,Tenderness Palpation Details Tenderness at posterior GH joint, no tenderness noted through scapula, tension at levator scap/ UT PT-OP-K Range of Motion Start: 07/09/21 12:35 Freq: Status: Active Protocol: Document 07/18/21 13:57 AMB (Rec: 07/18/21 14:24 AMB [id number]) Shoulder Goniometric Range of Motion Shoulder Left Passive Testing Position Supine Flexion 150 Abduction 133 External Rotation at 45 degrees 40 Abduction PT-OP-L Special Tests Start: 07/09/21 12:35 Freq: Status: Active Protocol: Document 07/18/21 13:45 AMB (Rec: 07/21/21 10:42 AMB [id number]) Special Tests Shoulder Special Tests Neer Impingement Test Results + PT-OP-M Strength Start: 07/09/21 12:35 Freq: Status: Active Protocol: Document 07/18/21 13:45 AMB (Rec: 07/21/21 10:42 AMB [id number]) Shoulder Strength Shoulder Manual Muscle Testing Left Flexion 4 Good Extension 4+ Good+ Abduction (C5) 4 Good External Rotation 4 Good Internal Rotation 4+ Good+ PT-OP-Q Treatments Start: 07/09/21 12:35 Freq: Status: Active Protocol: Document 08/05/21 13:45 AMB (Rec: 08/05/21 14:27 AMB [id number]) Therapeutic Exercises Sitting Exercises claude Reps/Minutes 5 min Comments flexion and scaption and internal rotation Standing Exercises abduction Standing Exercise Name standing on band and abducting L shd Resistance #2 Reps/Minutes 2x10 Comments 0-90 flexion Standing Exercise Name standing on band and flexing shd Resistance #2 Reps/Minutes 2x10 Comments 0-45 extension Standing Exercise Name t band Side bilateral Resistance #2 Reps/Minutes 2x10 rows Standing Exercise Name t band Side bilateral Resistance #3 Reps/Minutes 2x10 Manual Therapy Treatment Soft Tissue Mobilization 1 Body Location L scapula Mobilization Type Myofascial Release Intensity/Depth Moderate Body Position Hooklying Manual Techniques 1 Type shoulder PROM Comments flexion, abduction, ER PT-OP-T Assessment and Plan Start: 07/09/21 12:35 Freq: Status: Active Protocol: Document 08/05/21 13:45 AMB (Rec: 08/05/21 14:27 AMB [id number]) Physical Therapy Assessment Goals Two Impairment Pain Short Term Goal (STG) Ed will reach behind his back to don/doff his belt with 2/10 pain or less. STG Duration 4 weeks Jail Goal (LTG) Ed will sleep on his left shoulder without waking due to pain. LTG Duration 8 weeks One Impairment Range of motion Short Term Goal (STG) Ed will improve his passive shoulder flexion to 160 degrees. STG Duration 4 weeks Jail Goal (LTG) Ed will improve his active shoulder abduction to at least 150 degrees. LTG Duration 8 weeks Assessment Summary Assessment Ed tolerated strengthening well. ROM at end range still limited, worst into abduction and ER. Will need to continue to strengthen as pt continues to have difficulty with yardwork/more aggressive projects. Physical Therapy Plan Next Visit Focus/Plan Next Note Type Treatment Note Next Visit Plan Review PNF diagonals for HEP, progress ROM as tolerated. continue to progress t band exercises
--- NOTE | 2021-08-08 12:47 | PT.OTN ---
Current Diagnoses Pain in left shoulder (08/08/21) Physical Therapy Treatment Note PT-OP-A Visit Information Start: 07/09/21 12:35 Freq: Status: Active Protocol: Document 08/08/21 12:03 MA (Rec: 08/08/21 12:47 MA [id number]) Out-Patient Physical Therapy Visit Information Visit Information Visit Type Treatment Note Visit Start Time 12:05 Visit Stop Time 12:45 Total Visit Minutes 40 Visit Number 7 Number of [employer] Visits 1 PT-OP-B Current Condition Start: 07/09/21 12:35 Freq: Status: Active Protocol: Document 07/18/21 13:50 AMB (Rec: 07/18/21 13:57 AMB [id number]) Current Condition History of Current Condition Onset Date June 2020 Current Complaints L shoulder pain History of Current Condition Fell skiing, and hurt right knee and left shoulder. Left shoulder pain, reaching behind back is the worst, sleepin on the left shoulder is challenging. Has noticed decreased ROM, clicking with overhead movement. Denies numbness/tingling, does notice some tension in the neck. Prior Functional Status Baseline Function- ADL's Independent Baseline Function- Mobility Independent Current Functional Impairments (Reported) Functional Limitations- ADL's Has reduced weightlifting due to the pain. Pain with reaching behind back to move belt through belt loops, difficulty sleeping on the left shoulder. Personal Factors Other Personal Factors That May Effect DMII- intermittent fasting Therapy/Recovery PT-OP-C Subjective Start: 07/09/21 12:35 Freq: Status: Active Protocol: Document 08/08/21 12:03 MA (Rec: 08/08/21 12:47 MA [id number]) OP-PT Subjective Patient Comments Patient Comments Pt feels he has less intense pain when lifting arm up or reaching out (demonstrating protraction) PT-OP-J Posture/Palpation/Skin Start: 07/09/21 12:35 Freq: Status: Active Protocol: Document 07/19/21 13:45 AMB (Rec: 07/21/21 10:45 AMB [id number]) Posture Evaluation Comments Posture Comments Moderate forward shoulder posture Palpation Assessment Location One Palpation Location Left shoulder Palpation Findings Muscle Guarding,Tenderness Palpation Details Tenderness at posterior GH joint, no tenderness noted through scapula, tension at levator scap/ UT PT-OP-K Range of Motion Start: 07/09/21 12:35 Freq: Status: Active Protocol: Document 07/18/21 13:57 AMB (Rec: 07/18/21 14:24 AMB [id number]) Shoulder Goniometric Range of Motion Shoulder Left Passive Testing Position Supine Flexion 150 Abduction 133 External Rotation at 45 degrees 40 Abduction PT-OP-L Special Tests Start: 07/09/21 12:35 Freq: Status: Active Protocol: Document 07/18/21 13:45 AMB (Rec: 07/21/21 10:42 AMB [id number]) Special Tests Shoulder Special Tests Neer Impingement Test Results + PT-OP-M Strength Start: 07/09/21 12:35 Freq: Status: Active Protocol: Document 07/18/21 13:45 AMB (Rec: 07/21/21 10:42 AMB [id number]) Shoulder Strength Shoulder Manual Muscle Testing Left Flexion 4 Good Extension 4+ Good+ Abduction (C5) 4 Good External Rotation 4 Good Internal Rotation 4+ Good+ PT-OP-Q Treatments Start: 07/09/21 12:35 Freq: Status: Active Protocol: Document 08/08/21 12:03 MA (Rec: 08/08/21 12:47 MA [id number]) Therapeutic Exercises Sitting Exercises claude Reps/Minutes 5 min Comments flexion and scaption and internal rotation Standing Exercises abduction Standing Exercise Name standing on band and abducting L shd Resistance #2 Reps/Minutes 2x10 Comments full ROM flexion Standing Exercise Name standing on band and flexing shd Resistance #2 Reps/Minutes 2x10 Comments 0-90 extension Standing Exercise Name t band Side bilateral Resistance #2 Reps/Minutes 2x10 rows Standing Exercise Name t band Side bilateral Resistance #3 Reps/Minutes 2x10 Manual Therapy Treatment Soft Tissue Mobilization 1 Body Location L rotator cuff Mobilization Type Myofascial Release Intensity/Depth Moderate Body Position Sidelying Joint Mobilizations 1 Joint GH Direction inferior glide Grade III Body Position Sitting Comments inferior oscillations by with pt's arm abd to 90 degrees on table PT-OP-T Assessment and Plan Start: 07/09/21 12:35 Freq: Status: Active Protocol: Document 08/08/21 12:03 MA (Rec: 08/08/21 12:47 MA [id number]) Physical Therapy Assessment Goals Two Impairment Pain Short Term Goal (STG) Ed will reach behind his back to don/doff his belt with 2/10 pain or less. STG Duration 4 weeks Detention Goal (LTG) Ed will sleep on his left shoulder without waking due to pain. LTG Duration 8 weeks One Impairment Range of motion Short Term Goal (STG) Ed will improve his passive shoulder flexion to 160 degrees. STG Duration 4 weeks Detention Goal (LTG) Ed will improve his active shoulder abduction to at least 150 degrees. LTG Duration 8 weeks Assessment Summary Assessment Ed has no pain with L shd flex , abd, or ER today but continues to have pain with IR when reaching behind back. He is able to improve ROM during resisted t-band exercises to 90 degrees flexion and 160 degrees ABD. Physical Therapy Plan Frequency and Duration Frequency of Treatment 2x/Week Duration of Treatment 8 weeks Plan of Care Start Date 07/18/21 Plan of Care End Date 09/12/21 Therapeutic Interventions Therapeutic Interventions Home Exercise Program,Joint Mobilizations,Manual Therapy, Neuromuscular Re-education, Self-Care/Home Management,Soft Tissue Mobilization, Therapeutic Activities, Therapeutic Exercises Modalities Cold Pack/Ice Massage,Electric Stimulation,Hot Packs Next Visit Focus/Plan Next Note Type Treatment Note Next Visit Plan Review PNF diagonals for HEP, progress ROM as tolerated. continue to progress t band exercises
--- NOTE | 2021-08-12 15:41 | PT.OTN ---
Current Diagnoses Pain in left shoulder (08/12/21) Physical Therapy Treatment Note PT-OP-A Visit Information Start: 07/09/21 12:35 Freq: Status: Active Protocol: Document 08/12/21 12:09 AMB (Rec: 08/12/21 12:25 AMB [id number]) Out-Patient Physical Therapy Visit Information Visit Information Visit Type Treatment Note Visit Start Time 12:05 Visit Stop Time 12:50 Total Visit Minutes 45 Visit Number 8 PT-OP-B Current Condition Start: 07/09/21 12:35 Freq: Status: Active Protocol: Document 07/18/21 13:50 AMB (Rec: 07/18/21 13:57 AMB [id number]) Current Condition History of Current Condition Onset Date June 2020 Current Complaints L shoulder pain History of Current Condition Fell skiing, and hurt right knee and left shoulder. Left shoulder pain, reaching behind back is the worst, sleepin on the left shoulder is challenging. Has noticed decreased ROM, clicking with overhead movement. Denies numbness/tingling, does notice some tension in the neck. Prior Functional Status Baseline Function- ADL's Independent Baseline Function- Mobility Independent Current Functional Impairments (Reported) Functional Limitations- ADL's Has reduced weightlifting due to the pain. Pain with reaching behind back to move belt through belt loops, difficulty sleeping on the left shoulder. Personal Factors Other Personal Factors That May Effect DMII- intermittent fasting Therapy/Recovery PT-OP-C Subjective Start: 07/09/21 12:35 Freq: Status: Active Protocol: Document 08/12/21 12:09 AMB (Rec: 08/12/21 12:25 AMB [id number]) OP-PT Subjective Patient Comments Patient Comments Pt reports biggest issue continues to be IR and extension combo. PT-OP-J Posture/Palpation/Skin Start: 07/09/21 12:35 Freq: Status: Active Protocol: Document 07/19/21 13:45 AMB (Rec: 07/21/21 10:45 AMB [id number]) Posture Evaluation Comments Posture Comments Moderate forward shoulder posture Palpation Assessment Location One Palpation Location Left shoulder Palpation Findings Muscle Guarding,Tenderness Palpation Details Tenderness at posterior GH joint, no tenderness noted through scapula, tension at levator scap/ UT PT-OP-K Range of Motion Start: 07/09/21 12:35 Freq: Status: Active Protocol: Document 07/18/21 13:57 AMB (Rec: 07/18/21 14:24 AMB [id number]) Shoulder Goniometric Range of Motion Shoulder Left Passive Testing Position Supine Flexion 150 Abduction 133 External Rotation at 45 degrees 40 Abduction PT-OP-L Special Tests Start: 07/09/21 12:35 Freq: Status: Active Protocol: Document 07/18/21 13:45 AMB (Rec: 07/21/21 10:42 AMB [id number]) Special Tests Shoulder Special Tests Neer Impingement Test Results + PT-OP-M Strength Start: 07/09/21 12:35 Freq: Status: Active Protocol: Document 07/18/21 13:45 AMB (Rec: 07/21/21 10:42 AMB [id number]) Shoulder Strength Shoulder Manual Muscle Testing Left Flexion 4 Good Extension 4+ Good+ Abduction (C5) 4 Good External Rotation 4 Good Internal Rotation 4+ Good+ PT-OP-Q Treatments Start: 07/09/21 12:35 Freq: Status: Active Protocol: Document 08/12/21 12:09 AMB (Rec: 08/12/21 12:25 AMB [id number]) Therapeutic Exercises Standing Exercises IR Standing Exercise Name t band Resistance #3 Reps/Minutes 2x10 pnf diagonal Resistance #2 Reps/Minutes 2x10 extension Standing Exercise Name t band Side bilateral Resistance #3 Reps/Minutes 2x10 Manual Therapy Treatment Soft Tissue Mobilization 1 Body Location L rotator cuff Mobilization Type Myofascial Release Intensity/Depth Moderate Body Position Sidelying Joint Mobilizations 1 Joint GH Direction inferior glide Grade III Body Position Sitting Comments inferior oscillations by with pt's arm abd to 90 degrees on table Manual Techniques 1 Type shoulder PROM Comments flexion, abduction, ER, IR PT-OP-T Assessment and Plan Start: 07/09/21 12:35 Freq: Status: Active Protocol: Document 08/12/21 12:09 AMB (Rec: 08/12/21 12:25 AMB [id number]) Physical Therapy Assessment Goals Two Impairment Pain Short Term Goal (STG) Ed will reach behind his back to don/doff his belt with 2/10 pain or less. STG Duration 4 weeks Fpc Goal (LTG) Ed will sleep on his left shoulder without waking due to pain. LTG Duration 8 weeks One Impairment Range of motion Short Term Goal (STG) Ed will improve his passive shoulder flexion to 160 degrees. STG Duration 4 weeks Fpc Goal (LTG) Ed will improve his active shoulder abduction to at least 150 degrees. LTG Duration 8 weeks Assessment Summary Assessment Progressed t band with stronger resistance today, pt continues to have impingement sx with IR, but otherwise is improving. Physical Therapy Plan Next Visit Focus/Plan Next Note Type Treatment Note Next Visit Plan Review PNF diagonals for HEP, progress ROM as tolerated. continue to progress t band exercises
--- NOTE | 2021-08-20 12:54 | PT.OTN ---
Current Diagnoses Pain in left shoulder (08/20/21) Physical Therapy Treatment Note PT-OP-A Visit Information Start: 07/09/21 12:35 Freq: Status: Active Protocol: Document 08/20/21 11:58 AMB (Rec: 08/20/21 12:00 AMB [id number]) Out-Patient Physical Therapy Visit Information Visit Information Visit Type Treatment Note Visit Start Time 11:45 Visit Stop Time 12:00 Total Visit Minutes 15 Visit Number 9 PT-OP-B Current Condition Start: 07/09/21 12:35 Freq: Status: Active Protocol: Document 07/18/21 13:50 AMB (Rec: 07/18/21 13:57 AMB [id number]) Current Condition History of Current Condition Onset Date June 2020 Current Complaints L shoulder pain History of Current Condition Fell skiing, and hurt right knee and left shoulder. Left shoulder pain, reaching behind back is the worst, sleepin on the left shoulder is challenging. Has noticed decreased ROM, clicking with overhead movement. Denies numbness/tingling, does notice some tension in the neck. Prior Functional Status Baseline Function- ADL's Independent Baseline Function- Mobility Independent Current Functional Impairments (Reported) Functional Limitations- ADL's Has reduced weightlifting due to the pain. Pain with reaching behind back to move belt through belt loops, difficulty sleeping on the left shoulder. Personal Factors Other Personal Factors That May Effect DMII- intermittent fasting Therapy/Recovery PT-OP-C Subjective Start: 07/09/21 12:35 Freq: Status: Active Protocol: Document 08/20/21 11:45 AMB (Rec: 08/20/21 12:51 AMB [id number]) OP-PT Subjective Patient Comments Patient Comments Pt arrives 30 min late for appt, thought his appt was at noon, requests this is his last appt. PT-OP-J Posture/Palpation/Skin Start: 07/09/21 12:35 Freq: Status: Active Protocol: Document 07/19/21 13:45 AMB (Rec: 07/21/21 10:45 AMB [id number]) Posture Evaluation Comments Posture Comments Moderate forward shoulder posture Palpation Assessment Location One Palpation Location Left shoulder Palpation Findings Muscle Guarding,Tenderness Palpation Details Tenderness at posterior GH joint, no tenderness noted through scapula, tension at levator scap/ UT PT-OP-K Range of Motion Start: 07/09/21 12:35 Freq: Status: Active Protocol: Document 07/18/21 13:57 AMB (Rec: 07/18/21 14:24 AMB [id number]) Shoulder Goniometric Range of Motion Shoulder Left Passive Testing Position Supine Flexion 150 Abduction 133 External Rotation at 45 degrees 40 Abduction PT-OP-L Special Tests Start: 07/09/21 12:35 Freq: Status: Active Protocol: Document 07/18/21 13:45 AMB (Rec: 07/21/21 10:42 AMB [id number]) Special Tests Shoulder Special Tests Neer Impingement Test Results + PT-OP-M Strength Start: 07/09/21 12:35 Freq: Status: Active Protocol: Document 07/18/21 13:45 AMB (Rec: 07/21/21 10:42 AMB [id number]) Shoulder Strength Shoulder Manual Muscle Testing Left Flexion 4 Good Extension 4+ Good+ Abduction (C5) 4 Good External Rotation 4 Good Internal Rotation 4+ Good+ PT-OP-Q Treatments Start: 07/09/21 12:35 Freq: Status: Active Protocol: Document 08/20/21 11:45 AMB (Rec: 08/20/21 12:51 AMB [id number]) Therapeutic Exercises Supine Exercises 1 Supine Exercise Name passive shoulder flexion Reps/Minutes 10 Standing Exercises AROM internal rotation Reps/Minutes 10 AROM abduction Reps/Minutes 10 PT-OP-T Assessment and Plan Start: 07/09/21 12:35 Freq: Status: Active Protocol: Document 08/20/21 11:58 AMB (Rec: 08/20/21 12:00 AMB [id number]) Physical Therapy Assessment Goals Two Impairment Pain Short Term Goal (STG) Ed will reach behind his back to don/doff his belt with 2/10 pain or less. STG Duration MET [employer] Equipment [employer] Goal (LTG) Ed will sleep on his left shoulder without waking due to pain. LTG Duration MET One Impairment Range of motion Short Term Goal (STG) Ed will improve his passive shoulder flexion to 160 degrees. STG Duration PROGRESS MADE 155degrees [employer] Equipment [employer] Goal (LTG) Ed will improve his active shoulder abduction to at least 150 degrees. LTG Duration MET Assessment Summary Assessment Ed feels ready for discharge, his ROM is improving, although he has not met all of his rom goals. He has improved functionally as he can now thread his belt in his pants and briefly sleep on the affected shoulder. He is independent with his HEP and should be able to continue to improve independently. Physical Therapy Plan Discharge Physical Therapy Discharge Reasons Patient Request
== END 2021-08-21 11:58 ==
LOC: PHYS 11:15
PROVIDERS: Family Provider Nurse Practitioner Family; PCP Nurse Practitioner Family; Referring Provider Nurse Practitioner Family; Visit Provider Nurse Practitioner Family
DX: M25.512 Pain in left shoulder (principal)
CPT/HCPCS: 97110; 97140; 97161

== ENCOUNTER → 2022-05-09 14:03 | Outpatient (CLI) | payer MEDICARE, SELFPAY ==
[2022-05-09 15:00] LABS: Add Manual Diff / Slide Review NO; Basophils Absolute Auto 100 /uL (0-100); Eosinophils Absolute Auto 100 /uL (0-450); Eosinophils Percent Auto 2.3 % (2-4); Hematocrit 45.4 % (41-53); Hemoglobin 15.2 g/dL (13.5-17.5); Lymphocytes Absolute Auto 1900 /uL (1100-4500); Mean Corpuscular HGB Conc 33.4 % (30-36); Mean Corpuscular Hemoglobin 29.2 PG (26-34); Mean Corpuscular Volume 87.4 fL (80-100); Monocytes Absolute Auto 600 /uL (0-900); Monocytes Percent Auto 10.1 % (3-14); Neutrophils Absolute Auto 3300 /uL (1500-7000); Neutrophils Percent Auto 54.6 % (50-75); Platelet Count 194 X10^3/uL (150-400); Red Cell Distribution Width 14.6 % (11.6-14.8); White Blood Cell Count 5.9 X10^3/uL (4.5-11.0)
[2022-05-09 15:14] LABS: Hemoglobin A1C% w Est Avg Glu 5.9 % (4.0-6.0)
[2022-05-09 15:20] LABS: Alanine Aminotransferase 28 IU/L (<50); Albumin 4.5 g/dL (3.5-5.0); Albumin Globulin Ratio 1.3 (1.0-2.8); Alkaline Phosphatase 41 U/L (38-126); Aspartate Aminotransferase 25 IU/L (17-59); BUN Creatinine Ratio 21.1 (6-22); Bilirubin Total 0.7 mg/dL (0.2-1.3); Blood Urea Nitrogen 19 mg/dL (9-20); Calcium 9.1 mg/dL (8.4-10.2); Carbon Dioxide 27 mmol/L (22-32); Chloride 103 mmol/L (98-107); Cholesterol 210 mg/dL (140-199); Estimated Glomerular Filt Rate > 60 mL/min (>60); Globulin 3.5 g/dL (1.7-4.1); Glucose 102 mg/dL (80-110); HDL Cholesterol 39 mg/dL (40-60); HEMOLYSIS < 15 (0-50); LDL Cholesterol Calculated 149 mg/dL (<100); Potassium 4.4 mmol/L (3.4-5.1); Sodium 140 mmol/L (137-145); Triglycerides 112 mg/dL (35-150); Uric Acid 7.9 mg/dL (3.5-8.5)
== END ==
PROVIDERS: Family Provider Nurse Practitioner Family; PCP Family Medicine; Referring Provider Family Medicine; Visit Provider Family Medicine
DX: E78.2 Mixed hyperlipidemia (principal); R73.01 Impaired fasting glucose; M79.674 Pain in right toe(s); R03.0 Elevated blood-pressure reading, without diagnosis of hypertension
CPT/HCPCS: 36415; 80053; 80061; 83036; 84550; 85025

== ENCOUNTER → 2022-06-25 11:03 | Outpatient (CLI) | payer MEDICARE, SELFPAY ==
--- NOTE | 2022-06-25 11:04 | DI.US.S_ITS ---
PROCEDURE: US ABD AORTA ANEURYSM SCREEN INDICATIONS: SCREENING TECHNIQUE: Real-time scanning was performed of the aorta and proximal common iliac arteries, with image documentation. COMPARISON: None. FINDINGS: Aorta: Abdominal aorta is normal in caliber throughout its length. Iliacs: Proximal common iliac arteries are normal in caliber. IMPRESSION: No infrarenal aortic aneurysm. Dictated by: Pj Mariano M.D. on 06/25/2022 at 12:11 Approved by: Pj Mariano M.D. on 06/25/2022 at 12:14
== END ==
PROVIDERS: Family Provider Nurse Practitioner Family; PCP Family Medicine; Referring Provider Family Medicine; Visit Provider Family Medicine
DX: Z13.6 Encounter for screening for cardiovascular disorders (principal)
CPT/HCPCS: 76706

== ENCOUNTER → 2023-08-25 14:06 | Outpatient (CLI) | payer MEDICARE, SELFPAY ==
[2023-08-25 15:04] LABS: Add Manual Diff / Slide Review NO; Basophils Absolute Auto 100 /uL (0-100); Basophils Percent Auto 0.8 % (0-2); Eosinophils Absolute Auto 100 /uL (0-450); Eosinophils Percent Auto 1.5 % (2-4); Hematocrit 44.6 % (41-53); Hemoglobin 15.4 g/dL (13.5-17.5); Lymphocytes Absolute Auto 2000 /uL (1100-4500); Lymphocytes Percent Auto 25.5 % (25-40); Mean Corpuscular HGB Conc 34.5 % (30-36); Mean Corpuscular Hemoglobin 30.1 PG (26-34); Mean Corpuscular Volume 87.1 fL (80-100); Monocytes Absolute Auto 900 /uL (0-900); Monocytes Percent Auto 11.1 % (3-14); Neutrophils Absolute Auto 4700 /uL (1500-7000); Neutrophils Percent Auto 61.1 % (50-75); Platelet Count 217 X10^3/uL (150-400); Red Blood Cell Count 5.11 X10^6/uL (4.5-5.9); Red Cell Distribution Width 14.6 % (11.6-14.8); White Blood Cell Count 7.7 X10^3/uL (4.5-11.0)
[2023-08-25 15:56] LABS: TSH w/ Reflex to FT4 2.48 uIU/mL (0.47-4.68)
== END ==
PROVIDERS: PCP Family Medicine; Referring Provider Family Medicine; Visit Provider Family Medicine
DX: R00.2 Palpitations (principal)
CPT/HCPCS: 36415; 84443; 85025

== ENCOUNTER → 2023-09-10 15:13 | Outpatient (CLI) | payer MEDICARE, SELFPAY | LOC: CAR 15:14 | PROVIDERS: PCP Family Medicine; Referring Provider Family Medicine; Visit Provider Family Medicine | DX: R00.2 Palpitations (principal) | CPT/HCPCS: 93246 ==

== ENCOUNTER 2023-09-22 23:17 | Emergency (ER) | payer MEDICARE, SELFPAY ==
[2023-09-22 23:20] VITALS: BP 245/112; PULSE 69; RESP 18; TEMP 36.8; O2SAT 100; BMI 34.4
--- NOTE | 2023-09-22 23:21 | DI.RAD.S_ITS ---
PROCEDURE: XR CHEST 1V INDICATIONS: Chest pain TECHNIQUE: One view of the chest was acquired. COMPARISON: None. FINDINGS: Surgical changes and devices: None. Lungs and pleura: Lungs are clear. No pleural effusions or pneumothorax. Mediastinum: Mediastinal contours appear normal. Heart size is normal. Bones and chest wall: No suspicious bony lesions. Overlying soft tissues appear unremarkable. IMPRESSION: No acute cardiopulmonary abnormality is seen. Approved by: Marquita Heller M.D.,Ph.D. on 09/23/2023 at 0:00
[2023-09-22 23:30] VITALS: BP 220/101; PULSE 72; RESP 17; O2SAT 100
[2023-09-22 23:44] LABS: Add Manual Diff / Slide Review NO; Basophils Absolute Auto 100 /uL (0-100); Basophils Percent Auto 1.1 % (0-2); Eosinophils Absolute Auto 200 /uL (0-450); Eosinophils Percent Auto 2.2 % (2-4); Hematocrit 44.2 % (41-53); Hemoglobin 15.2 g/dL (13.5-17.5); Lymphocytes Absolute Auto 3300 /uL (1100-4500); Lymphocytes Percent Auto 34.1 % (25-40); Mean Corpuscular HGB Conc 34.4 % (30-36); Mean Corpuscular Hemoglobin 30.1 PG (26-34); Mean Corpuscular Volume 87.6 fL (80-100); Monocytes Absolute Auto 1100 /uL (0-900); Monocytes Percent Auto 11.6 % (3-14); Neutrophils Absolute Auto 4900 /uL (1500-7000); Platelet Count 227 X10^3/uL (150-400); Red Blood Cell Count 5.05 X10^6/uL (4.5-5.9); Red Cell Distribution Width 14.4 % (11.6-14.8); White Blood Cell Count 9.7 X10^3/uL (4.5-11.0)
[2023-09-22 23:55] LABS: Alanine Aminotransferase 28 IU/L (<50); Albumin 4.6 g/dL (3.5-5.0); Albumin Globulin Ratio 1.5 (1.0-2.8); BUN Creatinine Ratio 27.2 (6-22); Bilirubin Total 0.6 mg/dL (0.2-1.3); Blood Urea Nitrogen 22 mg/dL (9-20); Calcium 9.1 mg/dL (8.4-10.2); Carbon Dioxide 27 mmol/L (22-32); Chloride 107 mmol/L (98-107); Creatine Kinase 119 U/L (55-170); Estimated Glomerular Filt Rate > 60 mL/min (>60); Globulin 3.1 g/dL (1.7-4.1); Glucose 230 mg/dL (80-110); Lipase 141 U/L (23-300); Sodium 140 mmol/L (137-145); Total Protein 7.7 g/dL (6.3-8.2)
[2023-09-22 23:56] LABS: HEMOLYSIS 63 (0-50)
[2023-09-22 23:57] LABS: Alkaline Phosphatase 41 U/L (38-126); Aspartate Aminotransferase 23 IU/L (17-59); Potassium 4.3 mmol/L (3.4-5.1)
[2023-09-23] VITALS (22 sets, daily range): BP systolic 141–239; BP diastolic 70–107; PULSE 61–87; RESP 12–21; O2SAT 95–99
--- NOTE | 2023-09-23 00:04 | ED.CHESTPAIN ---
HPI - Chest Pain <Uli Gonzalez DO - Last Filed: 09/23/23 18:00> General Chief Complaint: Chest Pain Stated Complaint: chest pain Time Seen by Provider: 09/22/23 23:20 Source: patient Mode of arrival: Ambulatory Limitations: no limitations History of Present Illness HPI narrative: Patient is a 73-year-old male is here for evaluation of chest discomfort that is radiating to both of his shoulders. He states that his current symptoms started approximately 45 minutes ago and have been persistent since then. He states he has had similar symptoms in the past over the past couple months. Each time lasted a very short period of time. He is seen his primary doctor. He was wearing a ZIO patch because of the symptoms. He has not describing any palpitations. No lightheadedness. No shortness of breath. He is still having some discomfort the time of my evaluation. Patient does state that he takes his blood pressure at home. Normally his systolic blood pressures in the 130 range. He has been taking all of his medications as directed. Related Data Previous Rx's Medication Instructions Recorded blood-glucose meter (Blood Glucose #1 ea 01/26/19 Monitoring kit) blood pressure monitor #1 ea 06/13/21 Allergies Allergy/AdvReac Type Severity Reaction Status Date / Time ibuprofen Allergy Intermediate HIVES Verified 09/23/23 00:34 chlorpromazine Allergy Unknown Verified 09/23/23 00:34 [From Thorazine] prochlorperazine Allergy Unknown Verified 09/23/23 00:34 atorvastatin AdvReac Mild Myalgia Verified 09/23/23 00:34 Review of Systems <Uli Gonzalez DO - Last Filed: 09/23/23 18:00> Review of Systems ROS Unobtainable: All systems reviewed & are unremarkable except as noted in HPI and below Patient History <Uli Gonzalez DO - Last Filed: 09/23/23 18:00> Medical History Encounter for annual wellness visit (AWV) in Medicare patient IFG (impaired fasting glucose) Elevated blood pressure reading without diagnosis of hypertension (06/2021) Cyst (04/2019) Mixed hyperlipidemia (2014) Surgical History Anesthesia History of tonsillectomy and adenoidectomy (~1955) Family History Mother Hypertension Diabetes mellitus Stroke Father Hx of heart disorder Grandfather No problems noted. Grandmother Cancer Social History marital status: unknown Smoking Status: Former smoker Tobacco: How many years used: 15 second hand exposure: Yes alcohol intake: current (1-2 drinks, 2-3x/week) substance use type: marijuana (smoke, 2-3x/week) Smoking Status: Former smoker alcohol intake frequency: a few times a week Substance Use Type: marijuana Exam <DO Min Hilario Last Filed: 09/23/23 18:00> Initial Vital Signs Initial Vital Signs: Vital Signs Temperature 98.2 F 09/22/23 23:20 Pulse Rate 69 09/22/23 23:20 Respiratory Rate 18 09/22/23 23:20 Blood Pressure 245/112 H 09/22/23 23:20 Pulse Oximetry 100 09/22/23 23:20 Oxygen Delivery Method Room Air 09/22/23 23:20 Const General: cooperative, comfortable and No ill appearing HENIL Head: normal to inspection and normocephalic Resp Effort & Inspection: normal respiratory effort Auscultation: clear to auscultation bilaterally Cardio Rate: regular rate Rhythm: regular rhythm GI Inspection: normal to inspection and non-distended Skin General: no rashes or lesions noted Neuro General: patient alert, patient awake, patient oriented x3 and moves all extremities Extrem General: No edema <DO Min [place] Last Filed: 09/23/23 17:22> Initial Vital Signs Initial Vital Signs: Vital Signs Temperature 98.2 F 09/22/23 23:20 Pulse Rate 69 09/22/23 23:20 Respiratory Rate 18 09/22/23 23:20 Blood Pressure 245/112 H 09/22/23 23:20 Pulse Oximetry 100 09/22/23 23:20 Oxygen Delivery Method Room Air 09/22/23 23:20 Course <DO Min Hilario Last Filed: 09/23/23 18:00> Orders Ordered: ED Orders 09/23/23 09:30 PTT Partial Thromboplastin Calin Q6H Troponin & CK Cardiac Panel Stat 09/23/23 10:21 EKG-12 Lead Stat 09/23/23 15:29 EKG-12 Lead Stat 09/23/23 15:38 PTT Partial Thromboplastin Calin Q6H Trop I [Troponin I] Stat Discontinued Medications Aspirin (Aspirin 81 Mg Chew Tab) 324 mg PO NOW ONE Stop: 09/23/23 03:08 Last Admin: 09/23/23 03:12 Dose: 324 mg Documented By: RUFINA Heparin Sodium (Porcine) (Heparin 5,000 Unit/Ml Vial) 5,000 unit IV NOW ONE Stop: 09/23/23 02:59 Last Admin: 09/23/23 03:10 Dose: Not Given Documented By: RUFINA Heparin Sodium (Porcine) (Heparin 5,000 Unit/Ml Vial) 8,500 unit 80 unit/kg (8500 unit) IV NOW ONE Stop: 09/23/23 02:59 Last Admin: 09/23/23 03:10 Dose: Not Given Documented By: RUFINA Heparin Sodium (Porcine) (Heparin 5,000 Unit/Ml Vial) 5,000 unit IV NOW ONE Stop: 09/23/23 03:07 Last Admin: 09/23/23 03:11 Dose: 5,000 unit Documented By: RUFINA Heparin Sodium/Dextrose (Heparin Drip) 25,000 unit in 500 mls @ 26.127 mls/hr IV CONT SARAH; Protocol Last Admin: 09/23/23 03:29 Dose: Not Given Documented By: RUFINA Heparin Sodium/Dextrose (Heparin Drip) 25,000 unit in 500 mls @ 20 mls/hr IV CONT SARAH; Protocol Last Titration: 09/23/23 15:58 Dose: 21.8 mls/hr, 21.8 mls/hr Documented By: PRINCESS Co-signed By: CHENG Admin: 09/23/23 03:28 Dose: 20 mls/hr, 20 mls/hr Documented By: RUFINA Co-signed By: SHANNAN Nitroglycerin (Nitroglycerin 0.4 Mg Sl Tab) 0.4 mg SL [id number] PRN PRN Reason: Chest Pain Last Admin: 09/23/23 00:32 Dose: 0.4 mg Documented By: Admin: 09/23/23 00:26 Dose: 0.4 mg Documented By: Admin: 09/23/23 00:19 Dose: 0.4 mg Documented By: RUFINA Nitroglycerin (Nitroglycerin Oint 1 Inch/Gm Oint...G.) 0.5 inch TOP NOW ONE Stop: 09/23/23 05:36 Last Admin: 09/23/23 05:39 Dose: 0.5 inch Documented By: MELVI Vital Signs Vital signs: Vital Signs - 8 hr 09/23/23 11:41 09/23/23 13:34 09/23/23 16:06 Pulse Rate 72 69 67 Respiratory Rate 14 18 20 Blood Pressure 155/76 H 141/75 H 162/80 H Pulse Oximetry 97 98 97 Oxygen Delivery Method Room Air Room Air Room Air <Sarah Beth Reardon DO - Last Filed: 09/23/23 17:22> Orders Ordered: ED Orders 09/23/23 09:30 PTT Partial Thromboplastin Calin Q6H Troponin & CK Cardiac Panel Stat 09/23/23 10:21 EKG-12 Lead Stat 09/23/23 15:29 EKG-12 Lead Stat 09/23/23 15:38 PTT Partial Thromboplastin Calin Q6H Trop I [Troponin I] Stat Discontinued Medications Aspirin (Aspirin 81 Mg Chew Tab) 324 mg PO NOW ONE Stop: 09/23/23 03:08 Last Admin: 09/23/23 03:12 Dose: 324 mg Documented By: RUFINA Heparin Sodium (Porcine) (Heparin 5,000 Unit/Ml Vial) 5,000 unit IV NOW ONE Stop: 09/23/23 02:59 Last Admin: 09/23/23 03:10 Dose: Not Given Documented By: RUFINA Heparin Sodium (Porcine) (Heparin 5,000 Unit/Ml Vial) 8,500 unit 80 unit/kg (8500 unit) IV NOW ONE Stop: 09/23/23 02:59 Last Admin: 09/23/23 03:10 Dose: Not Given Documented By: RUFINA Heparin Sodium (Porcine) (Heparin 5,000 Unit/Ml Vial) 5,000 unit IV NOW ONE Stop: 09/23/23 03:07 Last Admin: 09/23/23 03:11 Dose: 5,000 unit Documented By: RUFINA Heparin Sodium/Dextrose (Heparin Drip) 25,000 unit in 500 mls @ 26.127 mls/hr IV CONT SARAH; Protocol Last Admin: 09/23/23 03:29 Dose: Not Given Documented By: RUFINA Heparin Sodium/Dextrose (Heparin Drip) 25,000 unit in 500 mls @ 20 mls/hr IV CONT SARAH; Protocol Last Titration: 09/23/23 15:58 Dose: 21.8 mls/hr, 21.8 mls/hr Documented By: PRINCESS Co-signed By: CHENG Admin: 09/23/23 03:28 Dose: 20 mls/hr, 20 mls/hr Documented By: RUFINA Co-signed By: SHANNAN Nitroglycerin (Nitroglycerin 0.4 Mg Sl Tab) 0.4 mg SL [id number] PRN PRN Reason: Chest Pain Last Admin: 09/23/23 00:32 Dose: 0.4 mg Documented By: Admin: 09/23/23 00:26 Dose: 0.4 mg Documented By: Admin: 09/23/23 00:19 Dose: 0.4 mg Documented By: RUFINA Nitroglycerin (Nitroglycerin Oint 1 Inch/Gm Oint...G.) 0.5 inch TOP NOW ONE Stop: 09/23/23 05:36 Last Admin: 09/23/23 05:39 Dose: 0.5 inch Documented By: MELVI Vital Signs Vital signs: Vital Signs - 8 hr 09/23/23 11:41 09/23/23 13:34 09/23/23 16:06 Pulse Rate 72 69 67 Respiratory Rate 14 18 20 Blood Pressure 155/76 H 141/75 H 162/80 H Pulse Oximetry 97 98 97 Oxygen Delivery Method Room Air Room Air Room Air MDM - Chest Pain <Uli Gonzalez DO - Last Filed: 09/23/23 18:00> Lab Data Attestation: I reviewed the patient's lab results. 09/22/23 23:30 09/22/23 23:30 Labs: Lab Results 09/22/23 09/23/23 09/23/23 Range/Units 23:30 01:55 03:05 WBC 9.7 (4.5-11.0) X10^3/uL RBC 5.05 (4.5-5.9) X10^6/uL Hgb 15.2 (13.5-17.5) g/dL Hct 44.2 (41-53) % MCV 87.6 (80-100) fL MCH 30.1 (26-34) PG MCHC 34.4 (30-36) % RDW 14.4 (11.6-14.8) % Plt Count 227 (150-400) X10^3/uL Neut % (Auto) 51.0 (50-75) % Lymph % (Auto) 34.1 (25-40) % [place] % (Auto) 11.6 (3-14) % Eos % (Auto) 2.2 (2-4) % Baso % (Auto) 1.1 (0-2) % Neut # (Auto) 4900 (4426-1978) /uL Lymph # (Auto) 3300 (8091-7046) /uL [place] # (Auto) 1100 H (0-900) /uL Eos # (Auto) 200 (0-450) /uL Baso # (Auto) 100 (0-100) /uL PT 11.2 (9.4-12.5) SECONDS INR 1.0 (0.9-1.3) APTT 33 (25.1-36.5) SECONDS Sodium 140 (137-145) mmol/L Potassium 4.3 (3.4-5.1) mmol/L Chloride 107 (98-107) mmol/L Carbon Dioxide 27 (22-32) mmol/L BUN 22 H (9-20) mg/dL Creatinine 0.81 (0.66-1.25) mg/dL Estimated GFR > 60 (>60) mL/min BUN/Creatinine Ratio 27.2 H (6-22) Glucose 230 H (80-110) mg/dL Calcium 9.1 (8.4-10.2) mg/dL Magnesium 2.0 (1.6-2.3) mg/dL Total Bilirubin 0.6 (0.2-1.3) mg/dL AST 23 (17-59) IU/L ALT 28 (<50) IU/L Alkaline Phosphatase 41 (38-126) U/L Total Creatine Kinase 119 152 (55-170) U/L Troponin I 0.017 0.227 H* (0.01-0.034) ng/mL Total Protein 7.7 (6.3-8.2) g/dL Albumin 4.6 (3.5-5.0) g/dL Globulin 3.1 (1.7-4.1) g/dL Albumin/Globulin Ratio 1.5 (1.0-2.8) Lipase 141 (23-300) U/L 09/23/23 09/23/23 Range/Units 09:30 15:38 WBC (4.5-11.0) X10^3/uL RBC (4.5-5.9) X10^6/uL Hgb (13.5-17.5) g/dL Hct (41-53) % MCV (80-100) fL MCH (26-34) PG MCHC (30-36) % RDW (11.6-14.8) % Plt Count (150-400) X10^3/uL Neut % (Auto) (50-75) % Lymph % (Auto) (25-40) % [place] % (Auto) (3-14) % Eos % (Auto) (2-4) % Baso % (Auto) (0-2) % Neut # (Auto) (2759-0362) /uL Lymph # (Auto) (5695-6211) /uL [place] # (Auto) (0-900) /uL Eos # (Auto) (0-450) /uL Baso # (Auto) (0-100) /uL PT (9.4-12.5) SECONDS INR (0.9-1.3) APTT 49 H D 44 H (25.1-36.5) SECONDS Sodium (137-145) mmol/L Potassium (3.4-5.1) mmol/L Chloride (98-107) mmol/L Carbon Dioxide (22-32) mmol/L BUN (9-20) mg/dL Creatinine (0.66-1.25) mg/dL Estimated GFR (>60) mL/min BUN/Creatinine Ratio (6-22) Glucose (80-110) mg/dL Calcium (8.4-10.2) mg/dL Magnesium (1.6-2.3) mg/dL Total Bilirubin (0.2-1.3) mg/dL AST (17-59) IU/L ALT (<50) IU/L Alkaline Phosphatase (38-126) U/L Total Creatine Kinase 648 H D (55-170) U/L Troponin I 15.900 H* 20.100 H* (0.01-0.034) ng/mL Total Protein (6.3-8.2) g/dL Albumin (3.5-5.0) g/dL Globulin (1.7-4.1) g/dL Albumin/Globulin Ratio (1.0-2.8) Lipase (23-300) U/L Imaging Data Chest x-ray: Radiologist's Impression: ROCEDURE: XR CHEST 1V INDICATIONS: Chest pain TECHNIQUE: One view of the chest was acquired. COMPARISON: None. FINDINGS: Surgical changes and devices: None. Lungs and pleura: Lungs are clear. No pleural effusions or pneumothorax. Mediastinum: Mediastinal contours appear normal. Heart size is normal. Bones and chest wall: No suspicious bony lesions. Overlying soft tissues appear unremarkable. IMPRESSION: No acute cardiopulmonary abnormality is seen. CT scan - chest: Radiologist's Impression: PROCEDURE: CT ANGIO CHEST ABDOMEN PELVIS INDICATIONS: HTN, shoulder/chest pain eval for TAD TECHNIQUE: Precontrast 5 mm thick sections acquired from the lung apices to the iliac crests. After the administration of intravenous contrast, 2.5 mm thick sections again acquired from the lung apices to the iliac crests. Maximum intensity projection (MIP) oblique sagittal and coronal reformats were then acquired. For radiation dose reduction, the following was used: automated exposure control. COMPARISON: None. FINDINGS: Image quality: Diagnostic. AORTA: No aortic aneurysm. No acute aortic syndrome. CHEST: Lower Neck: No enlarged lymph nodes. Thyroid: No thyroid nodules which require sonographic evaluation. Axillae: No enlarged lymph nodes. Chest Wall: Unremarkable. Lungs and Pleura: No pneumothorax or pleural effusions. No consolidation. Scattered pulmonary nodules with the largest in the right upper lobe measuring 4-5 mm (5/171, MIP image 86). Heart: Heart size is normal. No pericardial effusion. Thoracic Vessels: Pulmonary arteries demonstrate normal size. Mediastinum and Katie: No enlarged lymph nodes. Esophagus: No wall thickening. No hiatal hernia. ABDOMEN: Liver: No solid mass. Gallbladder: No radiopaque gallstones or wall thickening. Biliary ducts: No biliary dilation. Pancreas: No ductal dilation. Spleen: Size is within normal limits. Adrenal Glands: No adrenal nodules. Kidneys and Ureters: No hydronephrosis. No solid mass. No complex renal cystic lesion which requires follow up. Stomach and Bowel: Normal colonic caliber, without significant wall thickening. Normal caliber appendix. Peritoneum: No abnormal intraperitoneal fluid. No free air. Ventral Wall: No hernia. Abdominal Nodes: No retroperitoneal or mesenteric adenopathy by size criteria. Vessels: Inferior vena cava is normal in size. Aorto bi iliac atherosclerotic calcifications. No aortic dissection. PELVIS: Pelvic Organs: Unremarkable. Bladder: Unremarkable. Pelvic Nodes: No enlarged lymph nodes. Miscellaneous: No inguinal hernias are seen. Bones: Degenerative changes of the visualized spine without acute vertebral body compression fracture. IMPRESSION: No acute process in the chest, abdomen or pelvis. No evidence of thoracic aortic dissection as clinically queried. Scattered pulmonary nodules measuring up to 4-5 mm in the right upper lobe. If patient is high risk for lung malignancy, recommend follow-up CT chest in 12 months to demonstrate stability per Fleischner society guidelines. ECG Data Attestation: I personally reviewed and interpreted this ECG as follows: Interpretation: Sinus rhythm Ventricular rate is 77 Normal axis Normal QRS Normal QTC Nonspecific ST T wave changes Repeat EKG Sinus rate is 67 normal Normal QRS QTC No ST T wave changes MDM Narrative Medical decision making narrative: Patient was significantly hypertensive upon arrival. This did improve with time and also nitroglycerin. He is now chest pain-free. Nonspecific changes on his EKG. CTA does not show any signs aortic pathology. Repeat troponin is now positive. He was started on heparin. He is now pain-free. Patient does require transfer to facility with Cardiology given his positive troponin. He was given an aspirin. Attempted to contact multiple places without bed availability. We will continue to monitor here in the emergency department with heparin and serial troponins until disposition can be met. There were incidental findings of lung nodules on CT scan. Did discuss this with him. I did discuss that this is not related to the symptoms that brought him to the ER today. I did advise that he contact his primary doctor to discuss follow-up and further evaluation of these nodules. He expressed understanding of this plan. <Sarah Beth Reardon, DO - Last Filed: 09/23/23 17:22> Lab Data Labs: Lab Results 09/22/23 09/23/23 09/23/23 Range/Units 23:30 01:55 03:05 WBC 9.7 (4.5-11.0) X10^3/uL RBC 5.05 (4.5-5.9) X10^6/uL Hgb 15.2 (13.5-17.5) g/dL Hct 44.2 (41-53) % MCV 87.6 (80-100) fL MCH 30.1 (26-34) PG MCHC 34.4 (30-36) % RDW 14.4 (11.6-14.8) % Plt Count 227 (150-400) X10^3/uL Neut % (Auto) 51.0 (50-75) % Lymph % (Auto) 34.1 (25-40) % [place] % (Auto) 11.6 (3-14) % Eos % (Auto) 2.2 (2-4) % Baso % (Auto) 1.1 (0-2) % Neut # (Auto) 4900 (0031-2838) /uL Lymph # (Auto) 3300 (9329-4711) /uL [place] # (Auto) 1100 H (0-900) /uL Eos # (Auto) 200 (0-450) /uL Baso # (Auto) 100 (0-100) /uL PT 11.2 (9.4-12.5) SECONDS INR 1.0 (0.9-1.3) APTT 33 (25.1-36.5) SECONDS Sodium 140 (137-145) mmol/L Potassium 4.3 (3.4-5.1) mmol/L Chloride 107 (98-107) mmol/L Carbon Dioxide 27 (22-32) mmol/L BUN 22 H (9-20) mg/dL Creatinine 0.81 (0.66-1.25) mg/dL Estimated GFR > 60 (>60) mL/min BUN/Creatinine Ratio 27.2 H (6-22) Glucose 230 H (80-110) mg/dL Calcium 9.1 (8.4-10.2) mg/dL Magnesium 2.0 (1.6-2.3) mg/dL Total Bilirubin 0.6 (0.2-1.3) mg/dL AST 23 (17-59) IU/L ALT 28 (<50) IU/L Alkaline Phosphatase 41 (38-126) U/L Total Creatine Kinase 119 152 (55-170) U/L Troponin I 0.017 0.227 H* (0.01-0.034) ng/mL Total Protein 7.7 (6.3-8.2) g/dL Albumin 4.6 (3.5-5.0) g/dL Globulin 3.1 (1.7-4.1) g/dL Albumin/Globulin Ratio 1.5 (1.0-2.8) Lipase 141 (23-300) U/L 09/23/23 09/23/23 Range/Units 09:30 15:38 WBC (4.5-11.0) X10^3/uL RBC (4.5-5.9) X10^6/uL Hgb (13.5-17.5) g/dL Hct (41-53) % MCV (80-100) fL MCH (26-34) PG MCHC (30-36) % RDW (11.6-14.8) % Plt Count (150-400) X10^3/uL Neut % (Auto) (50-75) % Lymph % (Auto) (25-40) % [place] % (Auto) (3-14) % Eos % (Auto) (2-4) % Baso % (Auto) (0-2) % Neut # (Auto) (3326-1660) /uL Lymph # (Auto) (4673-7927) /uL [place] # (Auto) (0-900) /uL Eos # (Auto) (0-450) /uL Baso # (Auto) (0-100) /uL PT (9.4-12.5) SECONDS INR (0.9-1.3) APTT 49 H D 44 H (25.1-36.5) SECONDS Sodium (137-145) mmol/L Potassium (3.4-5.1) mmol/L Chloride (98-107) mmol/L Carbon Dioxide (22-32) mmol/L BUN (9-20) mg/dL Creatinine (0.66-1.25) mg/dL Estimated GFR (>60) mL/min BUN/Creatinine Ratio (6-22) Glucose (80-110) mg/dL Calcium (8.4-10.2) mg/dL Magnesium (1.6-2.3) mg/dL Total Bilirubin (0.2-1.3) mg/dL AST (17-59) IU/L ALT (<50) IU/L Alkaline Phosphatase (38-126) U/L Total Creatine Kinase 648 H D (55-170) U/L Troponin I 15.900 H* 20.100 H* (0.01-0.034) ng/mL Total Protein (6.3-8.2) g/dL Albumin (3.5-5.0) g/dL Globulin (1.7-4.1) g/dL Albumin/Globulin Ratio (1.0-2.8) Lipase (23-300) U/L ECG Data Interpretation: Sinus rhythm Ventricular rate is 77 Normal axis Normal QRS Normal QTC Nonspecific ST T wave changes Repeat EKG Sinus rate is 67 normal Normal QRS QTC No ST T wave changes Normal sinus rhythm rate 71 MA interval [address] changes or T-wave inversions similar to previous EKGs MDM Narrative Medical decision making narrative: Patient was significantly hypertensive upon arrival. This did improve with time and also nitroglycerin. He is now chest pain-free. Nonspecific changes on his EKG. CTA does not show any signs aortic pathology. Repeat troponin is now positive. He was started on heparin. He is now pain-free. Patient does require transfer to facility with Cardiology given his positive troponin. He was given an aspirin. Attempted to contact multiple places without bed availability. We will continue to monitor here in the emergency department with heparin and serial troponins until disposition can be met. There were incidental findings of lung nodules on CT scan. Did discuss this with him. I did discuss that this is not related to the symptoms that brought him to the ER today. I did advise that he contact his primary doctor to discuss follow-up and further evaluation of these nodules. He expressed understanding of this plan. Dr. reardon patient signed out to me by Dr. Gonzalez I have seen evaluated patient myself. Currently resting comfortably. He was having some chest discomfort couple hours ago nitro paste has been placed. He is on heparin drip. Overall feeling much better. He reports that he was prediabetic he changed his diet and was eating low carbs however over the last few months he got off the diet and now he is having chest pain. Multiple places have been called without bed availability. Echocardiogram ordered for this morning along with repeat troponin. Patient is chest pain-free now with no EKG changes Repeat troponin 15.9, and then 20.1 Repeat EKG again no ischemic changes 10:50 Dr. Stephen hospitalist Stefani santillan updated patient's symptoms test results Patient remains stable on heparin drip Critical Care Time <Sarah Beth Reardon, DO - Last Filed: 09/23/23 17:22> Critical Care Time Critical Care Time: Yes Total Critical Care Time: 45 Attestation: The high probability of a clinically significant, sudden or life threatening deterioration of the [cardiovascular] system(s) required my full and direct attention, intervention and personal management. The aggregate critical care time was [45] minutes. This time is in addition to time spent performing reported procedures but includes the following: [x] Data Review and interpretation [x] Patient assessment and monitoring of vital signs [x] Documentation [x] Medication orders and management Discharge Plan Departure Patient Disposition: [facility] Clinical Impression: Non-ST elevation NM (NSTEMI), Lung nodule, Hypertension Prescriptions: No Action (DME) blood-glucose meter [Blood Glucose Monitoring] Kit See Rx Instructions .ROUTE .MEDSULY Qty: 1 0RF Rx Instructions: QDAY (DME) blood pressure monitor Kit See Rx Instructions .Route Qty: 1 0RF Rx Instructions: As directed Referrals: Diogenes Montelongo DO [Primary Care Provider] -
[2023-09-23 00:07] LABS: Troponin I 0.017 ng/mL (0.01-0.034)
--- NOTE | 2023-09-23 00:16 | DI.CT.S_ITS ---
PROCEDURE: CT ANGIO CHEST ABDOMEN PELVIS INDICATIONS: HTN, shoulder/chest pain eval for TAD TECHNIQUE: Precontrast 5 mm thick sections acquired from the lung apices to the iliac crests. After the administration of intravenous contrast, 2.5 mm thick sections again acquired from the lung apices to the iliac crests. Maximum intensity projection (MIP) oblique sagittal and coronal reformats were then acquired. For radiation dose reduction, the following was used: automated exposure control. COMPARISON: None. FINDINGS: Image quality: Diagnostic. AORTA: No aortic aneurysm. No acute aortic syndrome. CHEST: Lower Neck: No enlarged lymph nodes. Thyroid: No thyroid nodules which require sonographic evaluation. Axillae: No enlarged lymph nodes. Chest Wall: Unremarkable. Lungs and Pleura: No pneumothorax or pleural effusions. No consolidation. Scattered pulmonary nodules with the largest in the right upper lobe measuring 4-5 mm (5/171, MIP image 86). Heart: Heart size is normal. No pericardial effusion. Thoracic Vessels: Pulmonary arteries demonstrate normal size. Mediastinum and Katie: No enlarged lymph nodes. Esophagus: No wall thickening. No hiatal hernia. ABDOMEN: Liver: No solid mass. Gallbladder: No radiopaque gallstones or wall thickening. Biliary ducts: No biliary dilation. Pancreas: No ductal dilation. Spleen: Size is within normal limits. Adrenal Glands: No adrenal nodules. Kidneys and Ureters: No hydronephrosis. No solid mass. No complex renal cystic lesion which requires follow up. Stomach and Bowel: Normal colonic caliber, without significant wall thickening. Normal caliber appendix. Peritoneum: No abnormal intraperitoneal fluid. No free air. Ventral Wall: No hernia. Abdominal Nodes: No retroperitoneal or mesenteric adenopathy by size criteria. Vessels: Inferior vena cava is normal in size. Aorto bi iliac atherosclerotic calcifications. No aortic dissection. PELVIS: Pelvic Organs: Unremarkable. Bladder: Unremarkable. Pelvic Nodes: No enlarged lymph nodes. Miscellaneous: No inguinal hernias are seen. Bones: Degenerative changes of the visualized spine without acute vertebral body compression fracture. IMPRESSION: No acute process in the chest, abdomen or pelvis. No evidence of thoracic aortic dissection as clinically queried. Scattered pulmonary nodules measuring up to 4-5 mm in the right upper lobe. If patient is high risk for lung malignancy, recommend follow-up CT chest in 12 months to demonstrate stability per Fleischner society guidelines. Approved by: Marquita Heller M.D.,Ph.D. on 09/23/2023 at 1:37
[2023-09-23] MEDS: NITROGLYCERIN 0.4 MG SL TAB SL ×3 (00:19→00:32)
[2023-09-23 02:17] LABS: Creatine Kinase 152 U/L (55-170)
[2023-09-23 02:57] LABS: Troponin I 0.227 ng/mL (0.01-0.034)
[2023-09-23] MEDS: HEPARIN 5,000 UNIT/ML VIAL 5000 UNIT IV (03:11)
[2023-09-23] MEDS: ASPIRIN 81 MG CHEW TAB 324 MG PO (03:12)
[2023-09-23 03:18] LABS: Prothrombin Time 11.2 SECONDS (9.4-12.5)
[2023-09-23 03:21] LABS: PTT Partial Thromboplastin Tim 33 SECONDS (25.1-36.5)
[2023-09-23] MEDS: HEPARIN DRIP 25,000 UNIT/500 ML IV.SOLN 20 UNIT IV (03:28)
[2023-09-23] MEDS: NITROGLYCERIN OINT 1 INCH/GM OINT...G. 0.5 INCH TOP (05:39)
--- NOTE | 2023-09-23 05:47 | PC.NURSE ---
Pt on lists at [facility] f/u @0900 and on list at [facility] f/u @ 0945. All other facilities called were boarding or at capacity no list ([facility], [facility]and [facility])
--- NOTE | 2023-09-23 06:13 | PC.NURSE ---
8 beat run of vtach noted pt denied any problems states he c/p is starting to fade
--- NOTE | 2023-09-23 07:33 | PC.NURSE ---
patient states his chest pain is down from an 8/10 to a 2/10 after the nitro paste.
[2023-09-23 09:59] LABS: Creatine Kinase 648 U/L (55-170); PTT Partial Thromboplastin Tim 49 SECONDS (25.1-36.5)
--- NOTE | 2023-09-23 15:47 | EKG_ITS ---
[address] [address] Test Date: 2023-09-23 Pat Name: Nawaf Bains Department: Room: Gender: M Marketing Programs Specialist: ABDULAZIZ : 1950 Requested By: Order Number: [id number] Reading MD: Devonte Heath MD Measurements Intervals [place] Rate: 70 P: 43 RI: 134 QRS: 71 QRSD: 92 T: 41 QT: 396 QTc: 427 Interpretive Statements Normal sinus rhythm Electronically Signed On 09-24-2023 11:54:30 PDT by Devonte Heath MD
[2023-09-23 15:54] LABS: PTT Partial Thromboplastin Tim 44 SECONDS (25.1-36.5)
== END 2023-09-23 17:21 | disposition short-term general hospital (02) ==
PROVIDERS: Emergency Medicine; Emergency Provider Emergency Medicine; PCP Family Medicine
DX: I21.4 Non-ST elevation (NSTEMI) myocardial infarction (principal); R91.1 Solitary pulmonary nodule; R79.89 Other specified abnormal findings of blood chemistry; I10 Essential (primary) hypertension; R07.9 Chest pain, unspecified
CPT/HCPCS: 36415; 71045; 71275; 74174; 80053; 82550; 83690; 83735; 84484; 85025; 85610; 85730; 93005; 93010; 96365; 96366; 96375; 99284; 99291; J1644; Q9967

== ENCOUNTER → 2023-12-30 14:26 | Outpatient (CLI) | payer MEDICARE, SELFPAY ==
[2023-12-30 16:00] LABS: Hemoglobin A1C% w Est Avg Glu 5.8 % (4.0-6.0)
[2023-12-30 16:51] LABS: Alanine Aminotransferase 28 IU/L (<50); Albumin 4.3 g/dL (3.5-5.0); Albumin Globulin Ratio 1.5 (1.0-2.8); Alkaline Phosphatase 42 U/L (38-126); Aspartate Aminotransferase 25 IU/L (17-59); BUN Creatinine Ratio 26.4 (6-22); Bilirubin Total 0.7 mg/dL (0.2-1.3); Blood Urea Nitrogen 24 mg/dL (9-20); Calcium 9.5 mg/dL (8.4-10.2); Carbon Dioxide 24 mmol/L (22-32); Chloride 101 mmol/L (98-107); Cholesterol 114 mg/dL (140-199); Estimated Glomerular Filt Rate > 60 mL/min (>60); Globulin 2.8 g/dL (1.7-4.1); Glucose 113 mg/dL (80-110); HDL Cholesterol 47 mg/dL (40-60); HEMOLYSIS < 15 (0-50); LDL Cholesterol Calculated 52 mg/dL (<100); Sodium 134 mmol/L (137-145); Total Protein 7.1 g/dL (6.3-8.2); Triglycerides 74 mg/dL (35-150)
[2023-12-31 16:36] LABS: Hep C Virus Ab w/Reflex Quant NEGATIVE s/c (NEGATIVE)
== END ==
PROVIDERS: PCP Family Medicine; Referring Provider Internal Medicine Cardiovascular Disease; Visit Provider Internal Medicine Cardiovascular Disease
DX: Z00.00 Encounter for general adult medical examination without abnormal findings; R73.01 Impaired fasting glucose; E78.5 Hyperlipidemia, unspecified; E78.2 Mixed hyperlipidemia; R03.0 Elevated blood-pressure reading, without diagnosis of hypertension; Z12.11 Encounter for screening for malignant neoplasm of colon
CPT/HCPCS: 36415; 80053; 80061; 83036; 86803

== ENCOUNTER 2024-02-24 12:30 | Outpatient (RCR) | payer MEDICARE, SELFPAY | END 2024-02-24 14:30 | LOC: CAR 12:30 | PROVIDERS: PCP Family Medicine; Referring Provider Family Medicine; Visit Provider Family Medicine | DX: I21.4 Non-ST elevation (NSTEMI) myocardial infarction (principal); I10 Essential (primary) hypertension | CPT/HCPCS: 93798 ==

== ENCOUNTER → 2024-03-03 06:54 | Outpatient (CLI) | payer MEDICARE, SELFPAY ==
--- NOTE | 2024-03-03 06:55 | DI.ECHO.S_ITS ---
[facility] : : [address] : : [place] : : [id number] : : Phone: [phone] Echocardiogram Report + + :Name: MACIEL MELGOZA Study Date: 03/03/2024 Height: 70.5 in: :[facility] ReadingLocation: Weight: 245 lb : : Gender: Male BSA: 2.3 m2 : :: 1950 Age: 73 yrs BP: 132/75 mmHg: :Reason For Study: LV DYSFUNCTION : :Ordering Physician: CHENCHO, : :ENMANUEL Performed By: Julia Arevalo : :Referring: ENMANUEL PAIZ : + + Interpretation Summary 1) Mildly increased left ventricular thickness (conentric) with normal size, normal wall motion, and normal systolic function (EF 60-65%). 2) Normal right ventricular size and function. 3) No significant valvular abnormalities. 4) No prior Echo available for comparison. Procedure: A two-dimensional transthoracic echocardiogram with color flow and Doppler was performed. The study quality was technically adequate. There is no prior echocardiogram noted for this patient. The patient was in sinus rhythm with heart rates between 53-62 bpm during the exam. Left Ventricle: The left ventricle is normal in size. There is mild concentric left ventricular hypertrophy. The ejection fraction is estimated to be 60-65%. Left ventricular systolic function appears normal without focal wall motion abnormalities. Right Ventricle: The right ventricle is normal in size and function. Atria: The left atrial size is normal. Right atrial size is normal. There is no Doppler evidence for an interatrial shunt. Mitral Valve: The mitral valve is normal in structure and function. There is mild mitral annular calcification. There is no mitral regurgitation noted. Aortic Valve: The aortic valve is trileaflet. The aortic valve opens well. There is no aortic valve stenosis. No aortic regurgitation is present. Tricuspid Valve: The tricuspid valve is normal in structure and function. There is mild tricuspid regurgitation. The right ventricular systolic pressure is estimated to be at least 30 mmHg based on an estimated right atrial pressure of 3 mm Hg. Pulmonic Valve: The pulmonic valve leaflets are thin and pliable; valve motion is normal. There is mild pulmonic regurgitation. Great Vessels: The aortic root is normal size. The dimensions of the ascending aorta are normal. The IVC is of normal diameter and collapses greater than 50% with a sniff. This suggests a low right atrial pressure of 3 mm Hg. Pericardium/ Pleura There is no pericardial effusion. There is no pleural effusion. MMode/2D Measurements & Calculations LVIDd: 4.6 cm LVOT diam: 2.1 cm LVIDs: 2.9 cm Ao root diam: 3.4 cm FS: 35.9 % asc Aorta Diam: 3.8 cm IVSd: 1.1 cm LVPWd: 1.1 cm LV ly. diameter/BSA (cm/m^2): 2.0 LV sys. diameter/BSA (cm/m^2): 1.3 LA A2 area: 22.6 cm2 RA long axis: 5.1 cm LA A4 area: 23.2 cm2 RA area: 14.3 cm2 LA length (vol): 5.8 cm RA vol: 34.1 ml LA vol: 76.4 ml RA : 14.9 ml/m2 LA vol index: 33.4 ml/m2 IVC diam: 0.88 cm RVD1 (basal): 4.0 cm TAPSE: 2.8 cm Doppler Measurements & Calculations Ao V2 max: 176.2 cm/sec LVOT Max Will: 120.4 cm/sec Ao V2 mean: 121.0 cm/sec LV V1 max P.8 mmHg Ao max P.4 mmHg LV V1 VTI: 27.4 cm Ao mean P.6 mmHg MAJO(I,D): 2.9 cm2 Ao V2 VTI: 34.1 cm MAJO(V,D): 2.4 cm2 sev ratio: 0.81 MAJO indexed to BSA (cm^2/m^2): 1.3 MV E max will: 98.1 cm/sec TR max will: 262.0 cm/sec MV A max will: 109.1 cm/sec TR max P.4 mmHg MV E/A: 0.90 PA V2 max: 122.6 cm/sec Med Peak E' Will: 7.5 cm/sec PA V2 mean: 79.7 cm/sec E/E' med: 13.1 PA mean P.0 mmHg Lat Peak E' Will: 7.4 cm/sec PA pr(Accel): 39.6 mmHg E/E' lat: 13.3 E/e' average: 13.2 MV dec time: 0.33 sec SV(LVOT): 97.7 ml Reading Physician:11:49 AM
== END ==
LOC: ECHO 06:54
PROVIDERS: PCP Family Medicine; Referring Provider Internal Medicine Cardiovascular Disease; Visit Provider Internal Medicine Cardiovascular Disease
DX: I08.0 Rheumatic disorders of both mitral and aortic valves (principal)
CPT/HCPCS: C8929; Q9957

== ENCOUNTER → 2024-10-28 13:42 | Outpatient (CLI) | payer MEDICARE, SELFPAY | PROVIDERS: PCP Family Medicine; Visit Provider Family Medicine | DX: R39.89 Other symptoms and signs involving the genitourinary system (principal) | CPT/HCPCS: 87077; 87086; 87186 ==